=== PATIENT | female | born 1955 | race Two or more races ===

== ENCOUNTER 2020-03-12 03:46 | Inpatient (IN) | payer MEDICARE, BC ==
[~2020-03-12] VITALS: Ht 170.2 cm; Wt 72.6 kg
[2020-03-12 05:08] LABS: BASOPHILS % 0.3 % (0.0-2.0); HEMATOCRIT. 36.6 % (36.0-48.0); HEMOGLOBIN. 12.3 g/dL (12.0-16.0); LYMPHOCYTES % 25.5 % (20.0-50.0); MEAN CORPUSCULAR VOLUME 86.5 fL (81.0-99.0); MEAN PLATELET VOLUME 8.2 fl (7.4-10.4); MONOCYTES % 10.4 % (2.0-8.0); NEUTROPHILS % 63.8 % (40.0-76.0); PLATELET 176 x1000/uL (130-400); RED BLOOD CELL COUNT 4.23 mill/uL (4.2-5.4)
[2020-03-12 05:13] LABS: CHLORIDE 103 mEq/L (98-107)
[2020-03-12] MEDS ORDERED: SODIUM CHLORIDE 0.9% 500 ML IV ONE (06:15)
[2020-03-12] MEDS ORDERED: DEXAMETHASONE 10 MG/ML VIAL IV ONE (06:15)
[2020-03-12] MEDS ORDERED: CEFTRIAXONE 1 G PREMIX 50 ML IV ONE (06:15)
[2020-03-12] MEDS ORDERED: AZITHROMYCIN 500 MG in DEXT 5% WATER 250 ML IV SCH (06:15)
[2020-03-12] MEDS ORDERED: ONDANSETRON HCL 4MG/2ML INJ IV PRN (06:45)
[2020-03-12] MEDS ORDERED: ACETAMINOPHEN 325MG TABLET PO PRN ×2 (06:45)
[2020-03-12] MEDS ORDERED: CLONIDINE 0.1MG TABLET PO PRN (06:45)
[2020-03-12] MEDS ORDERED: TRAMADOL 50MG TABLET PO PRN (06:45)
[2020-03-12] MEDS ORDERED: NITROGLYCERIN 0.4MG TABLET SL SL PRN (06:45)
[2020-03-12] MEDS ORDERED: KETOROLAC 15MG/ML VIAL IV PRN (06:45)
[2020-03-12] MEDS ORDERED: MAGNESIUM/ALUMINUM HYDROXIDE/SIMETHICONE 30ML UDC PO PRN (06:45)
[2020-03-12] MEDS ORDERED: ALBUTEROL 6.7GM HFA INHALER ORI PRN (06:45)
[2020-03-12] MEDS ORDERED: GUAIFENESIN 200MG/10ML SUGAR FREE UDC PO PRN (06:45)
[2020-03-12] MEDS ORDERED: DEXTROSE 50% WATER 50ML SYRINGE IV PRN (06:45)
[2020-03-12] MEDS ORDERED: DOCUSATE SODIUM 100MG CAPSULE PO PRN (06:45)
[2020-03-12] MEDS: INSULIN LISPRO 100 UNITS/ML SUBCUT SCH ×4 (08:20→21:00)
[2020-03-12] MEDS: BLOOD SUGAR DIAGNOSTIC STRIP TEST SCH ×4 (09:00→21:00)
[2020-03-12] MEDS: ALBUTEROL 6.7GM HFA INHALER ORI SCH ×3 (09:00→21:12)
[2020-03-12] MEDS ORDERED: BENZONATATE 100MG CAPSULE PO PRN (10:00)
[2020-03-12 11:13] VITALS: BP 115/59
[2020-03-12] MEDS ORDERED: HYDR25TA MT (11:48)
[2020-03-12] MEDS ORDERED: BENI5 MT (11:48)
[2020-03-12] MEDS ORDERED: AZIT250T12 MT (11:48)
[2020-03-12] MEDS ORDERED: METF-414 MT (11:48)
[2020-03-12] MEDS ORDERED: ALBU6.7H9 INH (11:48)
[2020-03-12] MEDS ORDERED: P20 MT (11:48)
[2020-03-12 12:00] VITALS: BP 101/57
[2020-03-12] MEDS ORDERED: REMDESIVIR 200 MG in SODIUM CHLORIDE 0.9% 250 ML IV NR (12:00)
[2020-03-12] MEDS: ASCORBIC ACID 500 MG TABLET PO SCH ×2 (12:30→21:12)
[2020-03-12] MEDS: GUAIFENESIN/DM 600MG/30MG ER TAB 12HR PO SCH ×2 (12:30→21:12)
[2020-03-12] MEDS: CHOLECALCIFEROL (D3) 1000 UNIT TABLET PO SCH (12:31)
[2020-03-12] MEDS: ENOXAPARIN 40MG/0.4ML SYR SUBCUT SCH (12:31)
[2020-03-12] MEDS: FAMOTIDINE 20MG TABLET PO SCH ×2 (12:33→21:12)
[2020-03-12] MEDS ORDERED: LOPERAMIDE HCL 2MG CAPSULE PO PRN (14:00)
[2020-03-12] MEDS ORDERED: ENOXAPARIN 40MG/0.4ML SYR SUBCUT SCH (14:30)
[2020-03-12] MEDS: DIPHENOXYLATE/ATROPINE 2.5/0.025MG TABLET PO SCH ×2 (15:00→17:35)
[2020-03-12] MEDS: ZINC SULFATE 220 MG ( 50 ) CAPSULE PO SCH (15:15)
[2020-03-12] MEDS: LOPERAMIDE HCL 2MG CAPSULE PO PRN (15:15)
[2020-03-12 15:58] LABS: CREATINE KINASE 84 IU/L (26-192)
[2020-03-12 16:00] VITALS: BP 101/60
[2020-03-12 16:00] LABS: CREATINE KINASE MB FRACTION < 1.0 ng/mL (0.5-3.6)
[2020-03-12] MEDS ORDERED: ZOLPIDEM TARTRATE 5MG TABLET PO PRN (18:00)
[2020-03-12 20:00] VITALS: BP 98/51
[2020-03-12 23:44] LABS: CREATINE KINASE 74 IU/L (26-192)
[2020-03-12 23:45] LABS: CREATINE KINASE MB FRACTION < 1.0 ng/mL (0.5-3.6)
[2020-03-13] VITALS: BP 95/41
[2020-03-13] MEDS: ALBUTEROL 6.7GM HFA INHALER ORI SCH ×4 (03:00→21:14)
[2020-03-13 04:00] VITALS: BP 98/53
[2020-03-13] MEDS: BLOOD SUGAR DIAGNOSTIC STRIP TEST SCH ×4 (07:06→21:06)
[2020-03-13] MEDS: INSULIN LISPRO 100 UNITS/ML SUBCUT SCH ×4 (07:06→21:08)
[2020-03-13 07:27] LABS: BASOPHILS % 0.1 % (0.0-2.0); HEMATOCRIT. 32.3 % (36.0-48.0); HEMOGLOBIN. 10.7 g/dL (12.0-16.0); LYMPHOCYTES % 9.9 % (20.0-50.0); MEAN CORPUSCULAR HEMOGLOBIN 28.9 pg (28.0-32.0); MEAN CORPUSCULAR VOLUME 87.5 fL (81.0-99.0); MEAN PLATELET VOLUME 8.7 fl (7.4-10.4); MONOCYTES % 3.6 % (2.0-8.0); NEUTROPHILS % 86.4 % (40.0-76.0); PLATELET 189 x1000/uL (130-400); RED BLOOD CELL COUNT 3.69 mill/uL (4.2-5.4); RED CELL DISTRIBUTION WIDTH 12.9 % (11.6-14.6)
[2020-03-13 07:38] LABS: CHLORIDE 106 mEq/L (98-107)
[2020-03-13 07:44] LABS: PHOSPHORUS 3.7 mg/dL (2.5-4.9)
[2020-03-13 08:00] VITALS: BP 99/50
[2020-03-13] MEDS ORDERED: AZITHROMYCIN 500 MG in DEXT 5% WATER 250 ML IV SCH (08:00)
[2020-03-13] MEDS: ENOXAPARIN 40MG/0.4ML SYR SUBCUT SCH (08:40)
[2020-03-13] MEDS: GUAIFENESIN/DM 600MG/30MG ER TAB 12HR PO SCH ×2 (08:41→21:06)
[2020-03-13] MEDS: ZINC SULFATE 220 MG ( 50 ) CAPSULE PO SCH (08:41)
[2020-03-13] MEDS: DEXAMETHASONE 10 MG/ML VIAL IV SCH (08:41)
[2020-03-13] MEDS: FAMOTIDINE 20MG TABLET PO SCH ×2 (08:41→21:06)
[2020-03-13] MEDS: ASCORBIC ACID 500 MG TABLET PO SCH ×2 (08:41→21:06)
[2020-03-13] MEDS: LOPERAMIDE HCL 2MG CAPSULE PO PRN (08:41)
[2020-03-13] MEDS: CEFTRIAXONE 1,000 MG in DEXTROSE 5% WATER 50 ML IV SCH (08:42)
[2020-03-13] MEDS: AZITHROMYCIN 500 MG in DEXT 5% WATER 250 ML IV SCH (08:42)
[2020-03-13] MEDS: CHOLECALCIFEROL (D3) 1000 UNIT TABLET PO SCH (08:56)
[2020-03-13] MEDS ORDERED: CEFTRIAXONE 1 G PREMIX 50 ML IV SCH (09:00)
[2020-03-13] MEDS: REMDESIVIR 100 MG in SODIUM CHLORIDE 0.9% 250 ML IV SCH (12:54)
[2020-03-13 16:00] VITALS: BP 99/40
[2020-03-13] MEDS ORDERED: ERGOCALCIFEROL 50000UNITS CAPSULE PO SCH (18:15)
[2020-03-13 20:00] VITALS: BP 106/54
[2020-03-14] VITALS: BP 108/55
[2020-03-14 04:00] VITALS: BP 112/52
[2020-03-14] MEDS: ALBUTEROL 6.7GM HFA INHALER ORI SCH ×4 (05:45→20:45)
[2020-03-14] MEDS: BLOOD SUGAR DIAGNOSTIC STRIP TEST SCH ×4 (06:20→20:44)
[2020-03-14] MEDS: INSULIN LISPRO 100 UNITS/ML SUBCUT SCH ×4 (06:20→20:42)
[2020-03-14 07:37] LABS: CHLORIDE 107 mEq/L (98-107)
[2020-03-14 08:00] VITALS: BP 92/49
[2020-03-14] MEDS: DEXAMETHASONE 10 MG/ML VIAL IV SCH (08:25)
[2020-03-14] MEDS: AZITHROMYCIN 500 MG in DEXT 5% WATER 250 ML IV SCH (08:25)
[2020-03-14] MEDS: ENOXAPARIN 40MG/0.4ML SYR SUBCUT SCH (08:51)
[2020-03-14] MEDS: ZINC SULFATE 220 MG ( 50 ) CAPSULE PO SCH (08:51)
[2020-03-14] MEDS: FAMOTIDINE 20MG TABLET PO SCH ×2 (08:51→20:41)
[2020-03-14] MEDS: CEFTRIAXONE 1,000 MG in DEXTROSE 5% WATER 50 ML IV SCH (08:51)
[2020-03-14] MEDS: GUAIFENESIN/DM 600MG/30MG ER TAB 12HR PO SCH ×2 (09:00→20:41)
[2020-03-14] MEDS: ASCORBIC ACID 500 MG TABLET PO SCH ×2 (09:00→20:41)
[2020-03-14 11:53] VITALS: BP 119/57
[2020-03-14] MEDS ORDERED: PNEUMOCOCCAL 23-VAL P-SAC VAC 0.5 ML IM ONE (12:00)
[2020-03-14] MEDS: REMDESIVIR 100 MG in SODIUM CHLORIDE 0.9% 250 ML IV SCH (13:31)
[2020-03-14 15:00] VITALS: BP 106/50
[2020-03-14 20:00] VITALS: BP 113/59
[2020-03-15] VITALS: BP 143/50
[2020-03-15 04:00] VITALS: BP 143/57
[2020-03-15] MEDS: ALBUTEROL 6.7GM HFA INHALER ORI SCH ×4 (04:52→21:31)
[2020-03-15] MEDS: INSULIN LISPRO 100 UNITS/ML SUBCUT SCH ×4 (06:08→21:41)
[2020-03-15] MEDS: BLOOD SUGAR DIAGNOSTIC STRIP TEST SCH ×4 (06:08→21:30)
[2020-03-15 06:38] LABS: CHLORIDE 108 mEq/L (98-107)
[2020-03-15 08:00] VITALS: BP 115/52
[2020-03-15] MEDS: ASCORBIC ACID 500 MG TABLET PO SCH ×2 (09:00→21:30)
[2020-03-15] MEDS: DEXAMETHASONE 10 MG/ML VIAL IV SCH (09:04)
[2020-03-15] MEDS: ZINC SULFATE 220 MG ( 50 ) CAPSULE PO SCH (09:04)
[2020-03-15] MEDS: FAMOTIDINE 20MG TABLET PO SCH ×2 (09:04→21:30)
[2020-03-15] MEDS: GUAIFENESIN/DM 600MG/30MG ER TAB 12HR PO SCH ×2 (09:04→21:30)
[2020-03-15] MEDS: AZITHROMYCIN 500 MG in DEXT 5% WATER 250 ML IV SCH (09:04)
[2020-03-15] MEDS: ENOXAPARIN 40MG/0.4ML SYR SUBCUT SCH ×2 (09:06→09:07)
[2020-03-15 12:00] VITALS: BP 119/54
[2020-03-15] MEDS: REMDESIVIR 100 MG in SODIUM CHLORIDE 0.9% 250 ML IV SCH (14:36)
[2020-03-15 16:00] VITALS: BP 107/46
[2020-03-15 20:00] VITALS: BP 142/66
[2020-03-16] VITALS: BP 144/72
[2020-03-16] MEDS: ALBUTEROL 6.7GM HFA INHALER ORI SCH ×4 (03:56→20:22)
[2020-03-16 04:00] VITALS: BP 146/60
[2020-03-16] MEDS: BLOOD SUGAR DIAGNOSTIC STRIP TEST SCH ×4 (07:02→20:22)
[2020-03-16 07:44] LABS: CHLORIDE 109 mEq/L (98-107)
[2020-03-16 08:00] VITALS: BP 133/62
[2020-03-16] MEDS: INSULIN LISPRO 100 UNITS/ML SUBCUT SCH ×4 (08:10→21:21)
[2020-03-16] MEDS: ASCORBIC ACID 500 MG TABLET PO SCH ×2 (09:49→20:22)
[2020-03-16] MEDS: FAMOTIDINE 20MG TABLET PO SCH ×2 (09:49→20:22)
[2020-03-16] MEDS: GUAIFENESIN/DM 600MG/30MG ER TAB 12HR PO SCH ×2 (09:49→20:22)
[2020-03-16] MEDS: AZITHROMYCIN 500 MG in DEXT 5% WATER 250 ML IV SCH (09:49)
[2020-03-16] MEDS: ZINC SULFATE 220 MG ( 50 ) CAPSULE PO SCH (09:49)
[2020-03-16] MEDS: DEXAMETHASONE 10 MG/ML VIAL IV SCH (09:50)
[2020-03-16] MEDS: ENOXAPARIN 40MG/0.4ML SYR SUBCUT SCH (09:50)
[2020-03-16 12:00] VITALS: BP 126/74
[2020-03-16 12:40] LABS: QFT MITOGEN VALUE 1.39 IU/mL (.); QFT TB GOLD PLUS Negative (Negative); QFT TB1 AG VALUE 0.02 IU/mL (.)
[2020-03-16] MEDS: REMDESIVIR 100 MG in SODIUM CHLORIDE 0.9% 250 ML IV SCH (14:20)
[2020-03-16 16:00] VITALS: BP 117/59
[2020-03-16] MEDS ORDERED: FUROSEMIDE 40MG/4ML VIAL IVP NR (16:15)
[2020-03-16 20:00] VITALS: BP 93/53
[2020-03-17] VITALS (7 sets, daily range): BP systolic 86–122; BP diastolic 51–63
[2020-03-17] MEDS: ALBUTEROL 6.7GM HFA INHALER ORI SCH ×4 (04:02→21:50)
[2020-03-17 07:09] LABS: CHLORIDE 106 mEq/L (98-107)
[2020-03-17] MEDS: BLOOD SUGAR DIAGNOSTIC STRIP TEST SCH ×4 (07:33→21:00)
[2020-03-17] MEDS: INSULIN LISPRO 100 UNITS/ML SUBCUT SCH ×4 (07:53→22:01)
[2020-03-17] MEDS: ENOXAPARIN 40MG/0.4ML SYR SUBCUT SCH (08:17)
[2020-03-17] MEDS: ASCORBIC ACID 500 MG TABLET PO SCH ×2 (08:18→21:50)
[2020-03-17] MEDS: ZINC SULFATE 220 MG ( 50 ) CAPSULE PO SCH (08:18)
[2020-03-17] MEDS: DEXAMETHASONE 10 MG/ML VIAL IV SCH (08:18)
[2020-03-17] MEDS: GUAIFENESIN/DM 600MG/30MG ER TAB 12HR PO SCH ×2 (09:00→21:50)
[2020-03-17] MEDS ORDERED: POTASSIUM CHLORIDE 20MEQ TABLET SR PO NR (12:00)
[2020-03-17] MEDS ORDERED: FUROSEMIDE 20MG/2ML VIAL IVP NR (12:00)
[2020-03-17] MEDS: FAMOTIDINE 20MG TABLET PO SCH ×2 (12:45→21:50)
[2020-03-18] VITALS: BP 134/69
[2020-03-18 04:00] VITALS: BP 119/65
[2020-03-18] MEDS: ALBUTEROL 6.7GM HFA INHALER ORI SCH ×4 (04:17→21:00)
[2020-03-18] MEDS: BLOOD SUGAR DIAGNOSTIC STRIP TEST SCH ×4 (06:35→21:41)
[2020-03-18 06:53] LABS: CHLORIDE 107 mEq/L (98-107)
[2020-03-18] MEDS: INSULIN LISPRO 100 UNITS/ML SUBCUT SCH ×4 (07:26→21:51)
[2020-03-18 07:57] VITALS: BP 103/53
[2020-03-18] MEDS: ENOXAPARIN 40MG/0.4ML SYR SUBCUT SCH (09:45)
[2020-03-18] MEDS: DEXAMETHASONE 10 MG/ML VIAL IV SCH (09:45)
[2020-03-18] MEDS: FAMOTIDINE 20MG TABLET PO SCH ×2 (09:47→21:51)
[2020-03-18] MEDS: ASCORBIC ACID 500 MG TABLET PO SCH ×2 (09:48→21:51)
[2020-03-18] MEDS: GUAIFENESIN/DM 600MG/30MG ER TAB 12HR PO SCH ×2 (09:48→21:51)
[2020-03-18] MEDS: ZINC SULFATE 220 MG ( 50 ) CAPSULE PO SCH (09:50)
[2020-03-18 12:00] VITALS: BP 110/45
[2020-03-18 16:00] VITALS: BP 123/47
[2020-03-18 20:00] VITALS: BP 126/61
[2020-03-19] VITALS: BP 127/64
[2020-03-19 04:00] VITALS: BP 126/65
[2020-03-19] MEDS: BLOOD SUGAR DIAGNOSTIC STRIP TEST SCH ×2 (07:16→12:36)
[2020-03-19] MEDS: INSULIN LISPRO 100 UNITS/ML SUBCUT SCH ×2 (07:16→12:37)
[2020-03-19 07:54] VITALS: BP 117/60
[2020-03-19] MEDS: ALBUTEROL 6.7GM HFA INHALER ORI SCH (08:07)
[2020-03-19] MEDS: ENOXAPARIN 40MG/0.4ML SYR SUBCUT SCH (08:07)
[2020-03-19] MEDS: ZINC SULFATE 220 MG ( 50 ) CAPSULE PO SCH (08:07)
[2020-03-19] MEDS: FAMOTIDINE 20MG TABLET PO SCH (08:07)
[2020-03-19] MEDS: ASCORBIC ACID 500 MG TABLET PO SCH (08:07)
[2020-03-19] MEDS: DEXAMETHASONE 10 MG/ML VIAL IV SCH (08:07)
[2020-03-19] MEDS: GUAIFENESIN/DM 600MG/30MG ER TAB 12HR PO SCH (08:07)
[2020-03-19 12:00] VITALS: BP 112/48
[2020-03-19 14:21] VITALS: BP 112/48
[2020-03-19 16:00] VITALS: BP 98/63
== END 2020-03-19 16:20 | disposition home or self-care (01) | DRG 871 ==
LOC: ER 03:46 → 7WST 06:07 → ENRESERV 08:45
PROVIDERS: ADMIT Internal Medicine; ATTEND Internal Medicine
PROC: XW033E5 Introduction of Remdesivir Anti-infective into Peripheral Vein, Percutaneous Approach, New Technology Group 5 (ICD-10-PCS; principal; 2020-03-13)
DX: A41.89 Other specified sepsis (principal); U07.1 COVID-19; J96.01 Acute respiratory failure with hypoxia; J12.82 Pneumonia due to coronavirus disease 2019; E44.1 Mild protein-calorie malnutrition; E11.9 Type 2 diabetes mellitus without complications; I10 Essential (primary) hypertension; D64.9 Anemia, unspecified; D72.819 Decreased white blood cell count, unspecified; B97.89 Other viral agents as the cause of diseases classified elsewhere; K52.9 Noninfective gastroenteritis and colitis, unspecified; Z90.710 Acquired absence of both cervix and uterus; Z83.3 Family history of diabetes mellitus; Z68.25 Body mass index [BMI] 25.0-25.9, adult; Z79.2 Long term (current) use of antibiotics; Z79.84 Long term (current) use of oral hypoglycemic drugs; Z90.89 Acquired absence of other organs; Z79.899 Other long term (current) drug therapy
CPT/HCPCS: 36415; 71045; 80053; 80061; 82550; 82553; 82728; 82962; 83036; 83605; 83735; 83880; 84100; 84145; 84484; 85025; 85379; 86140; 86480; 87426; 87635; 90732; 93005; 93970; 99285; J0456; J0696; J1100; J1650; J1815; J1940; J7040; J7050; J7060; Q9957

== ENCOUNTER 2020-03-25 04:39 | Inpatient (IN) | payer MEDICARE, BC ==
[~2020-03-25] VITALS: Ht 170.2 cm; Wt 60.3 kg
[~2020-03-25 04:39] MED LIST: ALBU6.7H9 INH; AZIT250T12 MT; BENI5 MT; HYDR25TA MT; METF-414 MT; P20 MT
[2020-03-25 05:59] LABS: HEMATOCRIT. 31.4 % (36.0-48.0); HEMOGLOBIN. 10.6 g/dL (12.0-16.0); MEAN CORPUSCULAR HEMOGLOBIN 29.3 pg (28.0-32.0); MEAN CORPUSCULAR VOLUME 86.5 fL (81.0-99.0); MEAN PLATELET VOLUME 8.6 fl (7.4-10.4); PLATELET 208 x1000/uL (130-400); RED BLOOD CELL COUNT 3.63 mill/uL (4.2-5.4); RED CELL DISTRIBUTION WIDTH 13.2 % (11.6-14.6)
[2020-03-25] MEDS ORDERED: METHYLPREDNISOLONE SOD SUCC 125 MG/2 ML VIAL IV ONE (06:00)
[2020-03-25] MEDS ORDERED: PIPERACILLIN/TAZOBACTAM 3.375GM/50ML PREMIX IV ONE (06:00)
[2020-03-25] MEDS ORDERED: VANCOMYCIN 1 G PREMIX 200 ML IV SCH (06:00)
[2020-03-25] MEDS ORDERED: LORAZEPAM 2MG/ML CPJ IV ONE (06:00)
[2020-03-25] MEDS ORDERED: AZITHROMYCIN 500 MG in DEXT 5% WATER 250 ML IV SCH (06:00)
[2020-03-25] MEDS ORDERED: PIPERACILLIN/TAZ 3.375G PREMIX 50 ML IV NR (06:15)
[2020-03-25 06:16] LABS: CHLORIDE 100 mEq/L (98-107)
[2020-03-25] MEDS ORDERED: MAGNESIUM/ALUMINUM HYDROXIDE/SIMETHICONE 30ML UDC PO PRN (07:15)
[2020-03-25] MEDS ORDERED: GUAIFENESIN 200MG/10ML SUGAR FREE UDC PO PRN (07:15)
[2020-03-25] MEDS ORDERED: ONDANSETRON HCL 4MG/2ML INJ IV PRN (07:15)
[2020-03-25] MEDS ORDERED: CLONIDINE 0.1MG TABLET PO PRN (07:15)
[2020-03-25] MEDS ORDERED: PIPERACILLIN/TAZ 3.375G PREMIX 50 ML IV SCH (07:15)
[2020-03-25 07:16] LABS: PLATELET ESTIMATE NORMAL
[2020-03-25] MEDS ORDERED: ENOXAPARIN 40MG/0.4ML SYR SUBCUT SCH (09:00)
[2020-03-25] MEDS: PIPERACILLIN/TAZ 3.375G PREMIX 50 ML IV SCH ×2 (12:00→18:35)
[2020-03-25 14:08] LABS: BG BASE EXCESS 1.2 mmol/L (-2.0-2.0); BG CARBOXYHEMOGLOBIN 0.3 % (0.5-1.5); BG DEOXYHEMOGLOBIN 8.5 % (0.0-5.0); BG FRACTION INSPIRED OXYGEN 100; BG HCO3 ACT 26.2 mmol/L (22.0-26.0); BG METHEMOGLOBIN 0.3 % (0.0-1.5); BG OXYGEN SATURATION 91.4 % (92.0-98.5); BG OXYHEMOGLOBIN 90.9 % (94.0-97.0); BG PCO2 43.4 mmHg (35.0-45.0); BG PH 7.399 (7.350-7.450); BG PO2 61.8 mmHg (75.0-100.0); BG SAMPLE SITE RIGHT RADIAL; BG TOTAL HEMOGLOBIN 11.1 g/dL (12.0-18.0); BG TOTAL RESPIRATORY RATE 41 b/min; BG VENT MODE MASK - BIPAP
[2020-03-25] MEDS ORDERED: GUAIFENESIN-DM 200MG-20MG/10ML UDC PO PRN (14:15)
[2020-03-25] MEDS ORDERED: ALBUTEROL 6.7GM HFA INHALER ORI PRN (14:15)
[2020-03-25] MEDS ORDERED: METHYLPREDNISOLONE SOD SUCC 40 MG/ML VIAL IV SCH (14:30)
[2020-03-25] MEDS: METHYLPREDNISOLONE SOD SUCC 125 MG/2 ML VIAL IV SCH ×2 (14:51→22:50)
[2020-03-25] MEDS: FUROSEMIDE 40MG/4ML VIAL IVP SCH ×2 (15:27→18:05)
[2020-03-25] MEDS: LORAZEPAM 2MG/ML CPJ IV PRN ×2 (18:05→23:15)
[2020-03-25] MEDS: ENOXAPARIN 80MG/0.8ML SYR SUBCUT SCH (18:36)
[2020-03-26] VITALS (7 sets, daily range): BP systolic 110–130; BP diastolic 56–69
[2020-03-26] MEDS: ACETAMINOPHEN 325MG TABLET PO PRN ×3 (01:13→22:30)
[2020-03-26] MEDS: PIPERACILLIN/TAZOBACTAM 3.375 G in DEXT 5% WATER 100 ML IV SCH ×4 (02:12→21:13)
[2020-03-26] MEDS: ENOXAPARIN 80MG/0.8ML SYR SUBCUT SCH ×2 (06:04→17:27)
[2020-03-26] MEDS: METHYLPREDNISOLONE SOD SUCC 125 MG/2 ML VIAL IV SCH ×3 (06:04→21:13)
[2020-03-26 06:31] LABS: CHLORIDE 100 mEq/L (98-107)
[2020-03-26 06:38] LABS: LDL CHOLESTEROL 102 mg/dL (5-100)
[2020-03-26 06:39] LABS: HDL CHOLESTEROL 31 mg/dL (40-59); T4 FREE 1.64 ng/dL (0.76-1.46); TOTAL IRON BINDING CAPACITY 159 ug/dL (250-450)
[2020-03-26 06:51] LABS: HEMATOCRIT. 30.8 % (36.0-48.0); HEMOGLOBIN. 10.3 g/dL (12.0-16.0); MEAN CORPUSCULAR HEMOGLOBIN 29.4 pg (28.0-32.0); MEAN CORPUSCULAR VOLUME 87.6 fL (81.0-99.0); MEAN PLATELET VOLUME 8.7 fl (7.4-10.4); PLATELET 191 x1000/uL (130-400); RED BLOOD CELL COUNT 3.51 mill/uL (4.2-5.4); RED CELL DISTRIBUTION WIDTH 13.4 % (11.6-14.6)
[2020-03-26 07:37] LABS: VITAMIN B12 SERUM 541 pg/mL (211-911)
[2020-03-26] MEDS: LORAZEPAM 2MG/ML CPJ IV PRN ×2 (09:34→22:30)
[2020-03-26 11:06] LABS: PLATELET ESTIMATE NORMAL
[2020-03-26] MEDS ORDERED: VANCOMYCIN 1250MG in DEXTROSE 5% WATER 250ML IV SCH (16:00)
[2020-03-26] MEDS: ERGOCALCIFEROL 50000UNITS CAPSULE PO SCH (17:25)
[2020-03-27] VITALS: BP 97/70
[2020-03-27] MEDS: PIPERACILLIN/TAZOBACTAM 3.375 G in DEXT 5% WATER 100 ML IV SCH ×4 (02:06→18:56)
[2020-03-27 04:00] VITALS: BP 124/61
[2020-03-27] MEDS: LORAZEPAM 2MG/ML CPJ IV PRN ×2 (04:04→18:56)
[2020-03-27] MEDS: VANCOMYCIN 1 G PREMIX 200 ML IV SCH ×2 (05:57→17:55)
[2020-03-27] MEDS: METHYLPREDNISOLONE SOD SUCC 125 MG/2 ML VIAL IV SCH ×3 (05:57→21:21)
[2020-03-27] MEDS: ENOXAPARIN 80MG/0.8ML SYR SUBCUT SCH ×2 (05:58→17:56)
[2020-03-27 08:00] VITALS: BP 120/56
[2020-03-27] MEDS: ACETAMINOPHEN 325MG TABLET PO PRN (08:42)
[2020-03-27] MEDS: FUROSEMIDE 40MG/4ML VIAL IVP SCH (08:42)
[2020-03-27] MEDS ORDERED: DEXTROSE 50% WATER 50ML SYRINGE IV PRN (10:45)
[2020-03-27 10:49] LABS: CHLORIDE 98 mEq/L (98-107)
[2020-03-27 11:06] LABS: CREATINE KINASE 28 IU/L (26-192)
[2020-03-27] MEDS: BLOOD SUGAR DIAGNOSTIC STRIP TEST SCH ×3 (11:32→21:20)
[2020-03-27 12:00] VITALS: BP 112/49
[2020-03-27] MEDS: GUAIFENESIN 600MG ER TABLET PO SCH ×2 (12:53→21:21)
[2020-03-27] MEDS: INSULIN LISPRO 100 UNITS/ML SUBCUT SCH ×3 (12:55→21:21)
[2020-03-27 16:00] VITALS: BP 127/63
[2020-03-27 20:00] VITALS: BP 140/72
[2020-03-28] VITALS: BP 147/68
[2020-03-28] MEDS: PIPERACILLIN/TAZOBACTAM 3.375 G in DEXT 5% WATER 100 ML IV SCH ×4 (00:24→18:13)
[2020-03-28] MEDS: IPRATROPIUM/ALBUTEROL 0.5-3(2.5)MG/3ML NEB NEB PRN (02:39)
[2020-03-28 04:00] VITALS: BP 141/70
[2020-03-28 04:29] LABS: HEMATOCRIT. 30.3 % (36.0-48.0); HEMOGLOBIN. 10.2 g/dL (12.0-16.0); MEAN CORPUSCULAR HEMOGLOBIN 29.1 pg (28.0-32.0); MEAN CORPUSCULAR VOLUME 86.2 fL (81.0-99.0); MEAN PLATELET VOLUME 8.2 fl (7.4-10.4); PLATELET 182 x1000/uL (130-400); RED BLOOD CELL COUNT 3.52 mill/uL (4.2-5.4); RED CELL DISTRIBUTION WIDTH 13.1 % (11.6-14.6)
[2020-03-28 04:48] LABS: CHLORIDE 97 mEq/L (98-107)
[2020-03-28 04:57] LABS: VANCOMYCIN TROUGH 12.8 ug/mL (5.0-10.0)
[2020-03-28] MEDS: METHYLPREDNISOLONE SOD SUCC 125 MG/2 ML VIAL IV SCH ×3 (05:21→21:14)
[2020-03-28] MEDS: VANCOMYCIN 1 G PREMIX 200 ML IV SCH (05:22)
[2020-03-28] MEDS: ENOXAPARIN 80MG/0.8ML SYR SUBCUT SCH ×2 (05:23→18:14)
[2020-03-28] MEDS: BLOOD SUGAR DIAGNOSTIC STRIP TEST SCH ×4 (06:33→21:00)
[2020-03-28] MEDS: INSULIN LISPRO 100 UNITS/ML SUBCUT SCH ×4 (07:38→21:15)
[2020-03-28 08:00] VITALS: BP 100/50
[2020-03-28] MEDS: GUAIFENESIN 600MG ER TABLET PO SCH ×2 (08:41→21:15)
[2020-03-28] MEDS: FUROSEMIDE 40MG/4ML VIAL IVP SCH (08:41)
[2020-03-28 12:00] VITALS: BP 117/60
[2020-03-28] MEDS: POTASSIUM CHLORIDE 20MEQ TABLET SR PO SCH (12:40)
[2020-03-28] MEDS: IVERMECTIN 3 MG TABLET PO SCH (15:23)
[2020-03-28] MEDS: MORPHINE SULFATE 2 MG/ML CPJ (NOT FOR IM USE) IV PRN (15:24)
[2020-03-28 15:29] LABS: PLATELET ESTIMATE NORMAL
[2020-03-28 16:00] VITALS: BP 120/65
[2020-03-28 20:00] VITALS: BP 112/49
[2020-03-28] MEDS: VANCOMYCIN 1250MG in DEXTROSE 5% WATER 250ML IV SCH (21:14)
[2020-03-29] VITALS: BP 110/62
[2020-03-29] MEDS: PIPERACILLIN/TAZOBACTAM 3.375 G in DEXT 5% WATER 100 ML IV SCH ×4 (01:00→18:56)
[2020-03-29 04:00] VITALS: BP 144/73
[2020-03-29] MEDS: ENOXAPARIN 80MG/0.8ML SYR SUBCUT SCH ×2 (05:43→18:56)
[2020-03-29] MEDS: METHYLPREDNISOLONE SOD SUCC 125 MG/2 ML VIAL IV SCH ×3 (05:44→21:18)
[2020-03-29] MEDS: BLOOD SUGAR DIAGNOSTIC STRIP TEST SCH ×4 (06:36→20:38)
[2020-03-29] MEDS: LORAZEPAM 2MG/ML CPJ IV PRN (06:39)
[2020-03-29 06:40] LABS: CHLORIDE 95 mEq/L (98-107)
[2020-03-29] MEDS: MORPHINE SULFATE 2 MG/ML CPJ (NOT FOR IM USE) IV PRN ×2 (06:52→21:18)
[2020-03-29] MEDS: INSULIN LISPRO 100 UNITS/ML SUBCUT SCH ×4 (07:30→22:51)
[2020-03-29 08:00] VITALS: BP 119/61
[2020-03-29] MEDS: FUROSEMIDE 40MG/4ML VIAL IVP SCH (08:39)
[2020-03-29] MEDS: GUAIFENESIN 600MG ER TABLET PO SCH ×2 (08:39→21:19)
[2020-03-29] MEDS: VANCOMYCIN 1250MG in DEXTROSE 5% WATER 250ML IV SCH ×2 (08:40→22:50)
[2020-03-29] MEDS: POTASSIUM CHLORIDE 20MEQ TABLET SR PO SCH (08:42)
[2020-03-29] MEDS: IVERMECTIN 3 MG TABLET PO SCH (09:30)
[2020-03-29 12:00] VITALS: BP 122/65
[2020-03-29] MEDS: BENZONATATE 100MG CAPSULE PO SCH ×2 (14:03→21:19)
[2020-03-29 16:00] VITALS: BP 121/75
[2020-03-29 20:00] VITALS: BP 115/59
[2020-03-30] VITALS: BP 119/60
[2020-03-30] MEDS: PIPERACILLIN/TAZOBACTAM 3.375 G in DEXT 5% WATER 100 ML IV SCH ×4 (00:28→21:06)
[2020-03-30] MEDS: LORAZEPAM 2MG/ML CPJ IV PRN (01:52)
[2020-03-30 04:00] VITALS: BP 120/66
[2020-03-30] MEDS: BENZONATATE 100MG CAPSULE PO SCH ×3 (05:13→21:06)
[2020-03-30] MEDS: METHYLPREDNISOLONE SOD SUCC 125 MG/2 ML VIAL IV SCH ×3 (05:13→21:06)
[2020-03-30] MEDS: ENOXAPARIN 80MG/0.8ML SYR SUBCUT SCH (05:14)
[2020-03-30 06:45] LABS: HEMATOCRIT. 33.6 % (36.0-48.0); HEMOGLOBIN. 11.1 g/dL (12.0-16.0); MEAN CORPUSCULAR HEMOGLOBIN 28.8 pg (28.0-32.0); MEAN CORPUSCULAR VOLUME 87.4 fL (81.0-99.0); MEAN PLATELET VOLUME 9.1 fl (7.4-10.4); PLATELET 165 x1000/uL (130-400); RED BLOOD CELL COUNT 3.84 mill/uL (4.2-5.4); RED CELL DISTRIBUTION WIDTH 13.2 % (11.6-14.6)
[2020-03-30 07:15] LABS: CHLORIDE 91 mEq/L (98-107)
[2020-03-30] MEDS: BLOOD SUGAR DIAGNOSTIC STRIP TEST SCH ×3 (07:40→21:25)
[2020-03-30 08:00] VITALS: BP 135/72
[2020-03-30] MEDS: FUROSEMIDE 40MG/4ML VIAL IVP SCH (09:03)
[2020-03-30] MEDS: GUAIFENESIN 600MG ER TABLET PO SCH ×2 (09:03→21:06)
[2020-03-30] MEDS: POTASSIUM CHLORIDE 20MEQ TABLET SR PO SCH (09:03)
[2020-03-30] MEDS: INSULIN LISPRO 100 UNITS/ML SUBCUT SCH ×4 (09:03→21:33)
[2020-03-30] MEDS: MORPHINE SULFATE 2 MG/ML CPJ (NOT FOR IM USE) IV PRN ×2 (09:44→19:03)
[2020-03-30] MEDS: IVERMECTIN 3 MG TABLET PO SCH (10:47)
[2020-03-30 12:00] VITALS: BP 102/59
[2020-03-30] MEDS: VANCOMYCIN 1250MG in DEXTROSE 5% WATER 250ML IV SCH ×2 (12:00→21:48)
[2020-03-30 12:23] LABS: PLATELET ESTIMATE NORMAL
[2020-03-30 18:00] VITALS: BP 119/59
[2020-03-30 20:00] VITALS: BP 117/61
[2020-03-31] VITALS: BP 128/64
[2020-03-31] MEDS: PIPERACILLIN/TAZOBACTAM 3.375 G in DEXT 5% WATER 100 ML IV SCH (02:30)
[2020-03-31 04:00] VITALS: BP 131/65
[2020-03-31] MEDS: METHYLPREDNISOLONE SOD SUCC 125 MG/2 ML VIAL IV SCH ×3 (05:47→21:52)
[2020-03-31] MEDS: BENZONATATE 100MG CAPSULE PO SCH ×4 (05:47→21:52)
[2020-03-31] MEDS: ENOXAPARIN 80MG/0.8ML SYR SUBCUT SCH (05:48)
[2020-03-31] MEDS: BLOOD SUGAR DIAGNOSTIC STRIP TEST SCH ×4 (06:02→21:51)
[2020-03-31 08:00] VITALS: BP 131/69
[2020-03-31] MEDS: MORPHINE SULFATE 2 MG/ML CPJ (NOT FOR IM USE) IV PRN ×2 (08:05→18:56)
[2020-03-31] MEDS: INSULIN LISPRO 100 UNITS/ML SUBCUT SCH ×3 (08:30→21:00)
[2020-03-31] MEDS: FUROSEMIDE 40MG/4ML VIAL IVP SCH (11:37)
[2020-03-31] MEDS: POTASSIUM CHLORIDE 20MEQ TABLET SR PO SCH (11:38)
[2020-03-31] MEDS: GUAIFENESIN 600MG ER TABLET PO SCH ×2 (11:38→21:52)
[2020-03-31] MEDS: IVERMECTIN 3 MG TABLET PO SCH (11:38)
[2020-03-31 12:00] VITALS: BP 106/59
[2020-03-31] MEDS: VANCOMYCIN 1250MG in DEXTROSE 5% WATER 250ML IV SCH ×2 (12:12→21:51)
[2020-03-31 20:00] VITALS: BP 106/61
[2020-03-31] MEDS: LORAZEPAM 2MG/ML CPJ IV PRN (23:53)
[2020-04-01] VITALS: BP 110/57
[2020-04-01 04:00] VITALS: BP 127/54
[2020-04-01] MEDS: MORPHINE SULFATE 2 MG/ML CPJ (NOT FOR IM USE) IV PRN (04:18)
[2020-04-01] MEDS: METHYLPREDNISOLONE SOD SUCC 125 MG/2 ML VIAL IV SCH ×3 (06:11→22:14)
[2020-04-01] MEDS: ENOXAPARIN 80MG/0.8ML SYR SUBCUT SCH ×2 (06:12→17:25)
[2020-04-01] MEDS: BENZONATATE 100MG CAPSULE PO SCH ×3 (06:12→22:13)
[2020-04-01] MEDS: BLOOD SUGAR DIAGNOSTIC STRIP TEST SCH ×4 (06:57→21:00)
[2020-04-01 08:00] VITALS: BP 125/62
[2020-04-01] MEDS: FUROSEMIDE 40MG/4ML VIAL IVP SCH (08:15)
[2020-04-01] MEDS: IVERMECTIN 3 MG TABLET PO SCH (08:15)
[2020-04-01] MEDS: GUAIFENESIN 600MG ER TABLET PO SCH ×2 (08:15→22:13)
[2020-04-01] MEDS: POTASSIUM CHLORIDE 20MEQ TABLET SR PO SCH (08:16)
[2020-04-01] MEDS: INSULIN LISPRO 100 UNITS/ML SUBCUT SCH ×4 (08:30→22:42)
[2020-04-01 11:36] LABS: BG BASE EXCESS 8.6 mmol/L (-2.0-2.0); BG CARBOXYHEMOGLOBIN 0.3 % (0.5-1.5); BG DEOXYHEMOGLOBIN 9.3 % (0.0-5.0); BG FRACTION INSPIRED OXYGEN 100; BG HCO3 ACT 33.6 mmol/L (22.0-26.0); BG METHEMOGLOBIN 0.3 % (0.0-1.5); BG OXYGEN SATURATION 90.6 % (92.0-98.5); BG OXYHEMOGLOBIN 90.1 % (94.0-97.0); BG PCO2 48.2 mmHg (35.0-45.0); BG PH 7.461 (7.350-7.450); BG PO2 59.6 mmHg (75.0-100.0); BG SAMPLE SITE RIGHT BRACHIAL; BG TOTAL HEMOGLOBIN 12.3 g/dL (12.0-18.0); BG TOTAL RESPIRATORY RATE 34 b/min; BG VENT MODE MASK - BIPAP
[2020-04-01 12:00] VITALS: BP 139/86
[2020-04-01] MEDS: ALPRAZOLAM 0.25 MG TABLET PO SCH ×2 (13:50→22:14)
[2020-04-01 16:00] VITALS: BP 112/59
[2020-04-01] MEDS: LORAZEPAM 2MG/ML CPJ IV PRN (18:05)
[2020-04-01 20:00] VITALS: BP 102/56
[2020-04-02] VITALS: BP 102/48
[2020-04-02] MEDS: MORPHINE SULFATE 2 MG/ML CPJ (NOT FOR IM USE) IV PRN ×2 (02:57→17:16)
[2020-04-02 04:00] VITALS: BP 111/60
[2020-04-02] MEDS: METHYLPREDNISOLONE SOD SUCC 125 MG/2 ML VIAL IV SCH ×3 (06:27→21:10)
[2020-04-02] MEDS: BENZONATATE 100MG CAPSULE PO SCH ×3 (06:27→21:10)
[2020-04-02] MEDS: ALPRAZOLAM 0.25 MG TABLET PO SCH ×3 (06:27→21:10)
[2020-04-02] MEDS: ENOXAPARIN 80MG/0.8ML SYR SUBCUT SCH ×2 (06:27→17:16)
[2020-04-02 07:00] LABS: CHLORIDE 96 mEq/L (98-107)
[2020-04-02 07:02] LABS: HEMATOCRIT. 34.1 % (36.0-48.0); HEMOGLOBIN. 11.6 g/dL (12.0-16.0); MEAN CORPUSCULAR HEMOGLOBIN 29.5 pg (28.0-32.0); MEAN PLATELET VOLUME 9.1 fl (7.4-10.4); PLATELET 246 x1000/uL (130-400); RED BLOOD CELL COUNT 3.92 mill/uL (4.2-5.4); RED CELL DISTRIBUTION WIDTH 13.4 % (11.6-14.6)
[2020-04-02] MEDS: BLOOD SUGAR DIAGNOSTIC STRIP TEST SCH ×4 (07:18→21:09)
[2020-04-02 08:00] VITALS: BP 119/59
[2020-04-02] MEDS: ERGOCALCIFEROL 50000UNITS CAPSULE PO SCH (08:18)
[2020-04-02] MEDS: POTASSIUM CHLORIDE 20MEQ TABLET SR PO SCH (08:18)
[2020-04-02] MEDS: FUROSEMIDE 40MG/4ML VIAL IVP SCH (08:18)
[2020-04-02] MEDS: GUAIFENESIN 600MG ER TABLET PO SCH ×2 (08:18→21:10)
[2020-04-02] MEDS: INSULIN LISPRO 100 UNITS/ML SUBCUT SCH ×4 (08:21→21:00)
[2020-04-02] MEDS: LORAZEPAM 2MG/ML CPJ IV PRN (11:15)
[2020-04-02 12:00] VITALS: BP 126/56
[2020-04-02 13:57] LABS: PLATELET ESTIMATE NORMAL
[2020-04-02 16:00] VITALS: BP 133/52
[2020-04-02 20:00] VITALS: BP 109/67
[2020-04-03 04:00] VITALS: BP 99/62
[2020-04-03] MEDS: METHYLPREDNISOLONE SOD SUCC 125 MG/2 ML VIAL IV SCH ×2 (05:26→13:14)
[2020-04-03] MEDS: ENOXAPARIN 80MG/0.8ML SYR SUBCUT SCH ×2 (05:26→17:30)
[2020-04-03] MEDS: MORPHINE SULFATE 2 MG/ML CPJ (NOT FOR IM USE) IV PRN ×2 (05:26→23:06)
[2020-04-03] MEDS: BENZONATATE 100MG CAPSULE PO SCH ×3 (05:26→21:28)
[2020-04-03] MEDS: ALPRAZOLAM 0.25 MG TABLET PO SCH ×3 (06:00→21:28)
[2020-04-03] MEDS: BLOOD SUGAR DIAGNOSTIC STRIP TEST SCH ×4 (06:33→21:04)
[2020-04-03] MEDS: INSULIN LISPRO 100 UNITS/ML SUBCUT SCH ×4 (07:13→21:30)
[2020-04-03 08:00] VITALS: BP 142/67
[2020-04-03] MEDS: FUROSEMIDE 40MG/4ML VIAL IVP SCH (09:10)
[2020-04-03] MEDS: GUAIFENESIN 600MG ER TABLET PO SCH ×2 (09:11→21:28)
[2020-04-03] MEDS: POTASSIUM CHLORIDE 20MEQ TABLET SR PO SCH (09:11)
[2020-04-03 12:00] VITALS: BP 148/69
[2020-04-03] MEDS: METHYLPREDNISOLONE SOD SUCC 40 MG/ML VIAL IV SCH ×2 (14:00→21:31)
[2020-04-03 16:00] VITALS: BP 125/58
[2020-04-03 20:00] VITALS: BP 128/63
[2020-04-04] VITALS (26 sets, daily range): BP systolic 102–127; BP diastolic 50–80
[2020-04-04] MEDS: ALPRAZOLAM 0.25 MG TABLET PO SCH ×3 (06:00→21:00)
[2020-04-04] MEDS: METHYLPREDNISOLONE SOD SUCC 40 MG/ML VIAL IV SCH ×3 (06:00→21:00)
[2020-04-04] MEDS: BENZONATATE 100MG CAPSULE PO SCH ×3 (06:01→21:00)
[2020-04-04] MEDS: ENOXAPARIN 80MG/0.8ML SYR SUBCUT SCH ×2 (06:01→18:26)
[2020-04-04] MEDS: BLOOD SUGAR DIAGNOSTIC STRIP TEST SCH ×4 (06:35→21:01)
[2020-04-04 07:26] LABS: CHLORIDE 102 mEq/L (98-107)
[2020-04-04 07:42] LABS: HEMATOCRIT. 34.8 % (36.0-48.0); HEMOGLOBIN. 11.6 g/dL (12.0-16.0); MEAN CORPUSCULAR HEMOGLOBIN 29.1 pg (28.0-32.0); MEAN CORPUSCULAR VOLUME 87.5 fL (81.0-99.0); PLATELET 335 x1000/uL (130-400); RED BLOOD CELL COUNT 3.97 mill/uL (4.2-5.4); RED CELL DISTRIBUTION WIDTH 13.7 % (11.6-14.6)
[2020-04-04] MEDS: POTASSIUM CHLORIDE 20MEQ TABLET SR PO SCH (09:00)
[2020-04-04] MEDS: FUROSEMIDE 40MG/4ML VIAL IVP SCH (11:16)
[2020-04-04] MEDS: INSULIN LISPRO 100 UNITS/ML SUBCUT SCH ×4 (11:16→21:02)
[2020-04-04] MEDS: GUAIFENESIN 600MG ER TABLET PO SCH ×2 (11:16→21:00)
[2020-04-04] MEDS: MORPHINE SULFATE 2 MG/ML CPJ (NOT FOR IM USE) IV PRN (17:16)
[2020-04-04 21:20] LABS: PLATELET ESTIMATE NORMAL
[2020-04-05] VITALS (50 sets, daily range): BP systolic 89–159; BP diastolic 48–125
[2020-04-05 05:56] LABS: CHLORIDE 99 mEq/L (98-107)
[2020-04-05] MEDS: BLOOD SUGAR DIAGNOSTIC STRIP TEST SCH ×4 (06:22→21:26)
[2020-04-05] MEDS: ALPRAZOLAM 0.25 MG TABLET PO SCH ×3 (06:22→21:20)
[2020-04-05] MEDS: BENZONATATE 100MG CAPSULE PO SCH ×3 (06:22→21:19)
[2020-04-05] MEDS: ENOXAPARIN 80MG/0.8ML SYR SUBCUT SCH (06:22)
[2020-04-05] MEDS: METHYLPREDNISOLONE SOD SUCC 40 MG/ML VIAL IV SCH ×3 (06:22→21:33)
[2020-04-05] MEDS: INSULIN LISPRO 100 UNITS/ML SUBCUT SCH ×4 (06:23→21:26)
[2020-04-05 08:32] LABS: BASOPHILS % 0.5 % (0.0-2.0); HEMATOCRIT. 34.6 % (36.0-48.0); HEMOGLOBIN. 11.7 g/dL (12.0-16.0); MEAN CORPUSCULAR HEMOGLOBIN 29.5 pg (28.0-32.0); MEAN CORPUSCULAR VOLUME 86.8 fL (81.0-99.0); MEAN PLATELET VOLUME 8.7 fl (7.4-10.4); MONOCYTES % 3.5 % (2.0-8.0); PLATELET 367 x1000/uL (130-400); RED BLOOD CELL COUNT 3.98 mill/uL (4.2-5.4); RED CELL DISTRIBUTION WIDTH 13.7 % (11.6-14.6)
[2020-04-05] MEDS: FUROSEMIDE 40MG/4ML VIAL IVP SCH (09:00)
[2020-04-05] MEDS: POTASSIUM CHLORIDE 20MEQ TABLET SR PO SCH (09:00)
[2020-04-05 09:23] LABS: BG CARBOXYHEMOGLOBIN 0.2 % (0.5-1.5); BG HCO3 ACT 30.2 mmol/L (22.0-26.0); BG METHEMOGLOBIN 0.4 % (0.0-1.5); BG OXYGEN SATURATION 83.9 % (92.0-98.5); BG OXYHEMOGLOBIN 83.4 % (94.0-97.0); BG PH 7.475 (7.350-7.450); BG PO2 46.6 mmHg (75.0-100.0); BG SAMPLE SITE RIGHT BRACHIAL; BG TOTAL HEMOGLOBIN 13.2 g/dL (12.0-18.0); BG VENT MODE VAPOTHERM
[2020-04-05] MEDS: LORAZEPAM 2MG/ML CPJ IV PRN (10:30)
[2020-04-05] MEDS: GUAIFENESIN 600MG ER TABLET PO SCH ×2 (12:16→21:20)
[2020-04-05] MEDS: ENOXAPARIN 60MG/0.6ML SYR SUBCUT SCH (18:05)
[2020-04-06] VITALS (50 sets, daily range): BP systolic 89–159; BP diastolic 48–106
[2020-04-06] MEDS: LORAZEPAM 2MG/ML CPJ IV PRN ×2 (01:14→10:14)
[2020-04-06 05:22] LABS: HEMATOCRIT. 35.5 % (36.0-48.0); HEMOGLOBIN. 11.8 g/dL (12.0-16.0); MEAN PLATELET VOLUME 8.7 fl (7.4-10.4); PLATELET 378 x1000/uL (130-400); RED BLOOD CELL COUNT 4.08 mill/uL (4.2-5.4); RED CELL DISTRIBUTION WIDTH 13.7 % (11.6-14.6)
[2020-04-06 05:37] LABS: CHLORIDE 103 mEq/L (98-107)
[2020-04-06 05:48] LABS: C REACTIVE PROTEIN QUANT 2.7 mg/L (0.0-3.0)
[2020-04-06] MEDS: ALPRAZOLAM 0.25 MG TABLET PO SCH ×3 (06:21→21:05)
[2020-04-06] MEDS: BENZONATATE 100MG CAPSULE PO SCH ×3 (06:21→21:05)
[2020-04-06] MEDS: METHYLPREDNISOLONE SOD SUCC 40 MG/ML VIAL IV SCH ×3 (06:21→22:04)
[2020-04-06] MEDS: ENOXAPARIN 60MG/0.6ML SYR SUBCUT SCH ×2 (06:22→18:00)
[2020-04-06] MEDS: BLOOD SUGAR DIAGNOSTIC STRIP TEST SCH ×4 (06:22→20:54)
[2020-04-06] MEDS: INSULIN LISPRO 100 UNITS/ML SUBCUT SCH ×4 (06:23→21:06)
[2020-04-06] MEDS: FUROSEMIDE 40MG/4ML VIAL IVP SCH (10:11)
[2020-04-06] MEDS: GUAIFENESIN 600MG ER TABLET PO SCH ×2 (10:11→21:05)
[2020-04-06] MEDS: POTASSIUM CHLORIDE 20MEQ TABLET SR PO SCH (10:14)
[2020-04-06 10:38] LABS: PLATELET ESTIMATE NORMAL
[2020-04-07] VITALS (32 sets, daily range): BP systolic 101–148; BP diastolic 60–92
[2020-04-07] MEDS: ENOXAPARIN 60MG/0.6ML SYR SUBCUT SCH ×2 (06:01→17:36)
[2020-04-07] MEDS: ALPRAZOLAM 0.25 MG TABLET PO SCH ×3 (06:01→21:22)
[2020-04-07] MEDS: METHYLPREDNISOLONE SOD SUCC 40 MG/ML VIAL IV SCH ×3 (06:01→21:22)
[2020-04-07] MEDS: BENZONATATE 100MG CAPSULE PO SCH ×3 (06:02→21:22)
[2020-04-07] MEDS: BLOOD SUGAR DIAGNOSTIC STRIP TEST SCH ×4 (06:30→21:22)
[2020-04-07] MEDS: FUROSEMIDE 40MG/4ML VIAL IVP SCH (08:20)
[2020-04-07] MEDS: DOCUSATE SODIUM 100MG CAPSULE PO PRN ×2 (08:20→21:42)
[2020-04-07] MEDS: GUAIFENESIN 600MG ER TABLET PO SCH ×2 (08:20→21:21)
[2020-04-07] MEDS: POTASSIUM CHLORIDE 20MEQ TABLET SR PO SCH (08:20)
[2020-04-07] MEDS: INSULIN LISPRO 100 UNITS/ML SUBCUT SCH ×4 (08:21→21:41)
[2020-04-07] MEDS: LORAZEPAM 2MG/ML CPJ IV PRN (15:57)
[2020-04-08] VITALS (39 sets, daily range): BP systolic 96–130; BP diastolic 60–113
[2020-04-08 05:55] LABS: HEMATOCRIT. 39.2 % (36.0-48.0); HEMOGLOBIN. 12.7 g/dL (12.0-16.0); MEAN CORPUSCULAR HEMOGLOBIN 28.1 pg (28.0-32.0); MEAN CORPUSCULAR VOLUME 86.9 fL (81.0-99.0); PLATELET 367 x1000/uL (130-400); RED BLOOD CELL COUNT 4.51 mill/uL (4.2-5.4)
[2020-04-08 06:02] LABS: CHLORIDE 104 mEq/L (98-107)
[2020-04-08 06:13] LABS: PHOSPHORUS 4.3 mg/dL (2.5-4.9)
[2020-04-08] MEDS: METHYLPREDNISOLONE SOD SUCC 40 MG/ML VIAL IV SCH ×3 (07:05→20:51)
[2020-04-08] MEDS: ENOXAPARIN 60MG/0.6ML SYR SUBCUT SCH ×2 (07:06→18:09)
[2020-04-08] MEDS: BENZONATATE 100MG CAPSULE PO SCH ×3 (07:06→14:24)
[2020-04-08] MEDS: ALPRAZOLAM 0.25 MG TABLET PO SCH ×3 (07:07→20:50)
[2020-04-08] MEDS: BLOOD SUGAR DIAGNOSTIC STRIP TEST SCH ×4 (07:07→20:51)
[2020-04-08] MEDS: INSULIN LISPRO 100 UNITS/ML SUBCUT SCH ×4 (07:15→20:50)
[2020-04-08] MEDS: FUROSEMIDE 40MG TABLET PO SCH (08:26)
[2020-04-08] MEDS: POTASSIUM CHLORIDE 20MEQ TABLET SR PO SCH (08:26)
[2020-04-08] MEDS: GUAIFENESIN 600MG ER TABLET PO SCH ×2 (08:26→20:50)
[2020-04-08 08:55] LABS: NUCLEATED RED BLOOD CELLS 1 /100 WBC; PLATELET ESTIMATE NORMAL
[2020-04-08] MEDS: DOCUSATE SODIUM 100MG CAPSULE PO SCH (17:00)
[2020-04-09] VITALS (42 sets, daily range): BP systolic 88–151; BP diastolic 51–130
[2020-04-09 00:24] LABS: BG BASE EXCESS -0.3 mmol/L (-2.0-2.0); BG CARBOXYHEMOGLOBIN 0.5 % (0.5-1.5); BG DEOXYHEMOGLOBIN 4.8 % (0.0-5.0); BG METHEMOGLOBIN 0.4 % (0.0-1.5); BG OXYGEN SATURATION 95.2 % (92.0-98.5); BG OXYHEMOGLOBIN 94.3 % (94.0-97.0); BG PCO2 38.3 mmHg (35.0-45.0); BG PH 7.415 (7.350-7.450); BG PO2 72.3 mmHg (75.0-100.0)
[2020-04-09] MEDS: ENOXAPARIN 60MG/0.6ML SYR SUBCUT SCH ×2 (05:36→18:23)
[2020-04-09] MEDS: BENZONATATE 100MG CAPSULE PO SCH ×3 (05:36→21:13)
[2020-04-09] MEDS: METHYLPREDNISOLONE SOD SUCC 40 MG/ML VIAL IV SCH ×3 (05:36→21:13)
[2020-04-09] MEDS: ALPRAZOLAM 0.25 MG TABLET PO SCH ×3 (05:36→21:13)
[2020-04-09] MEDS: BLOOD SUGAR DIAGNOSTIC STRIP TEST SCH ×4 (06:51→21:13)
[2020-04-09] MEDS: INSULIN LISPRO 100 UNITS/ML SUBCUT SCH ×4 (07:18→21:14)
[2020-04-09] MEDS ORDERED: NA PHOS,M-B/NA PHOS,DI-BA ENEMA 118ML PR SCH (09:00)
[2020-04-09] MEDS ORDERED: LACTULOSE 20G/30ML UDC PO SCH (09:00)
[2020-04-09] MEDS: FUROSEMIDE 40MG TABLET PO SCH (09:21)
[2020-04-09] MEDS: GUAIFENESIN 600MG ER TABLET PO SCH ×2 (09:22→21:13)
[2020-04-09] MEDS: POTASSIUM CHLORIDE 20MEQ TABLET SR PO SCH (09:22)
[2020-04-09] MEDS: ERGOCALCIFEROL 50000UNITS CAPSULE PO SCH (09:22)
[2020-04-09] MEDS: DOCUSATE SODIUM 100MG CAPSULE PO SCH ×2 (09:22→18:22)
[2020-04-09] MEDS: BISACODYL 5MG TABLET PO PRN (09:22)
[2020-04-09] MEDS: LORAZEPAM 2MG/ML CPJ IV PRN (15:11)
[2020-04-10] VITALS (48 sets, daily range): BP systolic 96–147; BP diastolic 56–112
[2020-04-10] MEDS: BENZONATATE 100MG CAPSULE PO SCH ×3 (06:17→21:18)
[2020-04-10] MEDS: ENOXAPARIN 60MG/0.6ML SYR SUBCUT SCH ×2 (06:18→18:23)
[2020-04-10] MEDS: METHYLPREDNISOLONE SOD SUCC 40 MG/ML VIAL IV SCH ×3 (06:18→21:18)
[2020-04-10] MEDS: ALPRAZOLAM 0.25 MG TABLET PO SCH ×3 (06:18→21:18)
[2020-04-10] MEDS: INSULIN LISPRO 100 UNITS/ML SUBCUT SCH ×4 (06:19→21:20)
[2020-04-10] MEDS: BLOOD SUGAR DIAGNOSTIC STRIP TEST SCH ×4 (06:19→21:18)
[2020-04-10] MEDS: DOCUSATE SODIUM 100MG CAPSULE PO SCH ×2 (08:47→17:00)
[2020-04-10] MEDS: POTASSIUM CHLORIDE 20MEQ TABLET SR PO SCH (09:00)
[2020-04-10] MEDS: GUAIFENESIN 600MG ER TABLET PO SCH ×3 (09:03→21:18)
[2020-04-10] MEDS ORDERED: DICYCLOMINE HCL 10MG CAPSULE PO SCH (12:00)
[2020-04-10] MEDS: DICYCLOMINE HCL 10MG CAPSULE PO SCH ×3 (14:21→23:44)
[2020-04-10 20:54] LABS: CHLORIDE 98 mEq/L (98-107)
[2020-04-11] VITALS (35 sets, daily range): BP systolic 90–128; BP diastolic 47–79
[2020-04-11] MEDS: LORAZEPAM 2MG/ML CPJ IV PRN (00:58)
[2020-04-11] MEDS ORDERED: LORAZEPAM 2MG/ML CPJ IV PRN (01:00)
[2020-04-11] MEDS: BLOOD SUGAR DIAGNOSTIC STRIP TEST SCH ×4 (05:39→20:59)
[2020-04-11] MEDS: BENZONATATE 100MG CAPSULE PO SCH ×3 (05:59→21:00)
[2020-04-11] MEDS: ENOXAPARIN 60MG/0.6ML SYR SUBCUT SCH ×2 (05:59→17:49)
[2020-04-11] MEDS: DICYCLOMINE HCL 10MG CAPSULE PO SCH ×3 (05:59→17:49)
[2020-04-11] MEDS: ALPRAZOLAM 0.25 MG TABLET PO SCH ×3 (05:59→21:00)
[2020-04-11] MEDS: METHYLPREDNISOLONE SOD SUCC 40 MG/ML VIAL IV SCH ×3 (05:59→21:00)
[2020-04-11] MEDS: INSULIN LISPRO 100 UNITS/ML SUBCUT SCH ×4 (06:00→21:00)
[2020-04-11] MEDS: DOCUSATE SODIUM 100MG CAPSULE PO SCH ×2 (09:17→17:49)
[2020-04-11] MEDS: GUAIFENESIN 600MG ER TABLET PO SCH ×2 (09:21→20:59)
[2020-04-11 15:04] LABS: BG BASE EXCESS 1.9 mmol/L (-2.0-2.0); BG CARBOXYHEMOGLOBIN 0.6 % (0.5-1.5); BG DEOXYHEMOGLOBIN 6.8 % (0.0-5.0); BG HCO3 ACT 26.1 mmol/L (22.0-26.0); BG METHEMOGLOBIN 0.3 % (0.0-1.5); BG OXYGEN SATURATION 93.1 % (92.0-98.5); BG OXYHEMOGLOBIN 92.3 % (94.0-97.0); BG PCO2 39.7 mmHg (35.0-45.0); BG PH 7.436 (7.350-7.450); BG PO2 63.7 mmHg (75.0-100.0); BG SAMPLE SITE LEFT BRACHIAL; BG TOTAL HEMOGLOBIN 13.2 g/dL (12.0-18.0)
[2020-04-11 15:48] LABS: BG FRACTION INSPIRED OXYGEN 90; BG VENT MODE HIGH FLOW
[2020-04-12] VITALS (42 sets, daily range): BP systolic 96–168; BP diastolic 48–116
[2020-04-12] MEDS: LORAZEPAM 2MG/ML CPJ IV PRN ×2 (00:48→14:49)
[2020-04-12] MEDS: DICYCLOMINE HCL 10MG CAPSULE PO SCH ×3 (00:48→14:02)
[2020-04-12 05:00] LABS: HEMOGLOBIN. 11.4 g/dL (12.0-16.0); MEAN CORPUSCULAR HEMOGLOBIN 28.5 pg (28.0-32.0); MEAN CORPUSCULAR VOLUME 87.3 fL (81.0-99.0); MEAN PLATELET VOLUME 8.9 fl (7.4-10.4); PLATELET 188 x1000/uL (130-400); RED BLOOD CELL COUNT 4.01 mill/uL (4.2-5.4); RED CELL DISTRIBUTION WIDTH 14.1 % (11.6-14.6)
[2020-04-12 05:02] LABS: CHLORIDE 101 mEq/L (98-107)
[2020-04-12] MEDS: METHYLPREDNISOLONE SOD SUCC 40 MG/ML VIAL IV SCH ×3 (06:42→21:03)
[2020-04-12] MEDS: ENOXAPARIN 60MG/0.6ML SYR SUBCUT SCH ×2 (06:42→17:39)
[2020-04-12] MEDS: BENZONATATE 100MG CAPSULE PO SCH ×3 (06:43→21:03)
[2020-04-12] MEDS: INSULIN LISPRO 100 UNITS/ML SUBCUT SCH ×4 (06:51→21:04)
[2020-04-12] MEDS: BLOOD SUGAR DIAGNOSTIC STRIP TEST SCH ×4 (06:51→21:01)
[2020-04-12] MEDS: DOCUSATE SODIUM 100MG CAPSULE PO SCH ×2 (09:09→17:39)
[2020-04-12] MEDS: GUAIFENESIN 600MG ER TABLET PO SCH ×2 (09:09→21:03)
[2020-04-12 14:29] LABS: PLATELET ESTIMATE NORMAL
[2020-04-12] MEDS: BISACODYL 5MG TABLET PO PRN (17:39)
[2020-04-12] MEDS: SIMETHICONE 80MG TABLET CHEW PO SCH (18:43)
[2020-04-13] VITALS (42 sets, daily range): BP systolic 102–155; BP diastolic 50–99
[2020-04-13] MEDS: LORAZEPAM 2MG/ML CPJ IV PRN (00:28)
[2020-04-13] MEDS: BENZONATATE 100MG CAPSULE PO SCH ×3 (05:55→21:28)
[2020-04-13] MEDS: METHYLPREDNISOLONE SOD SUCC 40 MG/ML VIAL IV SCH ×3 (05:55→21:28)
[2020-04-13] MEDS: ENOXAPARIN 60MG/0.6ML SYR SUBCUT SCH ×2 (05:55→18:53)
[2020-04-13] MEDS: BLOOD SUGAR DIAGNOSTIC STRIP TEST SCH ×4 (06:05→21:00)
[2020-04-13] MEDS: INSULIN LISPRO 100 UNITS/ML SUBCUT SCH ×4 (06:05→21:29)
[2020-04-13] MEDS: POLYETHYLENE GLYCOL 3350 (17GM) 1 DOSE PACK PO SCH (10:00)
[2020-04-13] MEDS: DOCUSATE SODIUM 100MG CAPSULE PO SCH ×2 (11:04→18:53)
[2020-04-13] MEDS: SIMETHICONE 80MG TABLET CHEW PO SCH ×3 (11:04→18:53)
[2020-04-13] MEDS: GUAIFENESIN 600MG ER TABLET PO SCH ×2 (11:04→21:28)
[2020-04-13] MEDS: ALPRAZOLAM 0.25 MG TABLET PO SCH ×2 (13:43→21:28)
[2020-04-13] MEDS: HYDROCODONE/APAP 7.5/325MG 1 TAB TABLET PO PRN (21:43)
[2020-04-14] VITALS (13 sets, daily range): BP systolic 101–170; BP diastolic 31–74
[2020-04-14 01:55] LABS: CLARITY URINE CLEAR (CLEAR); COLOR URINE YELLOW (YELLOW); KETONES URINE NEGATIVE (NEGATIVE); LEUKOCYTE ESTERASE URINE NEGATIVE (NEGATIVE); NITRITE URINE NEGATIVE (NEGATIVE); OCCULT BLOOD URINE NEGATIVE (NEGATIVE); PROTEIN URINE TRACE (NEGATIVE); SPECIFIC GRAVITY URINE 1.024 (1.005-1.030)
[2020-04-14] MEDS: HYDROCODONE/APAP 7.5/325MG 1 TAB TABLET PO PRN ×2 (04:52→11:14)
[2020-04-14] MEDS: ENOXAPARIN 60MG/0.6ML SYR SUBCUT SCH ×2 (05:43→18:05)
[2020-04-14] MEDS: BENZONATATE 100MG CAPSULE PO SCH ×3 (05:44→20:57)
[2020-04-14] MEDS: ALPRAZOLAM 0.25 MG TABLET PO SCH ×3 (05:44→20:56)
[2020-04-14] MEDS: METHYLPREDNISOLONE SOD SUCC 40 MG/ML VIAL IV SCH ×3 (05:44→20:56)
[2020-04-14] MEDS: BLOOD SUGAR DIAGNOSTIC STRIP TEST SCH ×4 (07:30→21:22)
[2020-04-14] MEDS: INSULIN LISPRO 100 UNITS/ML SUBCUT SCH ×4 (08:00→22:28)
[2020-04-14] MEDS: DOCUSATE SODIUM 100MG CAPSULE PO SCH ×2 (09:00→16:42)
[2020-04-14] MEDS: POLYETHYLENE GLYCOL 3350 (17GM) 1 DOSE PACK PO SCH (09:39)
[2020-04-14] MEDS: SIMETHICONE 80MG TABLET CHEW PO SCH ×3 (09:39→18:05)
[2020-04-14] MEDS: GUAIFENESIN 600MG ER TABLET PO SCH ×2 (09:39→20:57)
[2020-04-14] MEDS ORDERED: LACTULOSE 20G/30ML UDC PO PRN (12:00)
[2020-04-14] MEDS ORDERED: KETOROLAC 15MG/ML VIAL IV PRN (12:00)
[2020-04-15] VITALS (11 sets, daily range): BP systolic 108–169; BP diastolic 60–93
[2020-04-15] MEDS: LORAZEPAM 2MG/ML CPJ IV PRN ×2 (04:27→12:57)
[2020-04-15] MEDS: ALPRAZOLAM 0.25 MG TABLET PO SCH ×3 (06:00→20:49)
[2020-04-15] MEDS: ENOXAPARIN 60MG/0.6ML SYR SUBCUT SCH (06:00)
[2020-04-15] MEDS: BENZONATATE 100MG CAPSULE PO SCH ×3 (06:00→20:48)
[2020-04-15] MEDS: METHYLPREDNISOLONE SOD SUCC 40 MG/ML VIAL IV SCH ×3 (06:06→20:47)
[2020-04-15] MEDS: INSULIN LISPRO 100 UNITS/ML SUBCUT SCH ×4 (08:00→21:19)
[2020-04-15] MEDS: BLOOD SUGAR DIAGNOSTIC STRIP TEST SCH ×4 (08:15→20:48)
[2020-04-15] MEDS ORDERED: HYDROCODONE/APAP 7.5/325MG 1 TAB TABLET PO PRN (08:45)
[2020-04-15] MEDS: GUAIFENESIN 600MG ER TABLET PO SCH ×2 (08:47→20:51)
[2020-04-15] MEDS: POLYETHYLENE GLYCOL 3350 (17GM) 1 DOSE PACK PO SCH (08:48)
[2020-04-15] MEDS: SIMETHICONE 80MG TABLET CHEW PO SCH ×3 (08:49→18:04)
[2020-04-15] MEDS: DOCUSATE SODIUM 100MG CAPSULE PO SCH ×2 (08:54→17:00)
[2020-04-15 09:11] LABS: HEMATOCRIT. 33.2 % (36.0-48.0); HEMOGLOBIN. 11.2 g/dL (12.0-16.0); MEAN CORPUSCULAR HEMOGLOBIN 29.2 pg (28.0-32.0); MEAN CORPUSCULAR VOLUME 86.9 fL (81.0-99.0); MEAN PLATELET VOLUME 8.6 fl (7.4-10.4); PLATELET 134 x1000/uL (130-400); RED BLOOD CELL COUNT 3.82 mill/uL (4.2-5.4); RED CELL DISTRIBUTION WIDTH 14.6 % (11.6-14.6)
[2020-04-15 11:14] LABS: BG BASE EXCESS 0.8 mmol/L (-2.0-2.0); BG CARBOXYHEMOGLOBIN 0.6 % (0.5-1.5); BG DEOXYHEMOGLOBIN 4.9 % (0.0-5.0); BG FRACTION INSPIRED OXYGEN 99.9; BG HCO3 ACT 24.7 mmol/L (22.0-26.0); BG METHEMOGLOBIN 0.1 % (0.0-1.5); BG OXYGEN SATURATION 95.1 % (92.0-98.5); BG OXYHEMOGLOBIN 94.4 % (94.0-97.0); BG PCO2 36.8 mmHg (35.0-45.0); BG PH 7.445 (7.350-7.450); BG SAMPLE SITE LEFT BRACHIAL; BG TOTAL HEMOGLOBIN 11.5 g/dL (12.0-18.0); BG VENT MODE MASK - NRB
[2020-04-15] MEDS: HYDROCORTISONE 1% RECTAL CREAM 30GM PR SCH ×2 (13:30→20:48)
[2020-04-15] MEDS: HEMORRHOIDAL SUPP PR SCH ×2 (15:40→20:47)
[2020-04-15 16:20] LABS: HEMOGLOBIN 11.2 g/dL (12.0-16.0)
[2020-04-15 17:53] LABS: PLATELET ESTIMATE NORMAL
[2020-04-16] VITALS (10 sets, daily range): BP systolic 100–135; BP diastolic 53–77
[2020-04-16] MEDS: LORAZEPAM 2MG/ML CPJ IV PRN (00:18)
[2020-04-16 02:11] LABS: HEMATOCRIT 30.5 % (36.0-48.0); HEMOGLOBIN 10.1 g/dL (12.0-16.0)
[2020-04-16] MEDS: METHYLPREDNISOLONE SOD SUCC 40 MG/ML VIAL IV SCH ×3 (05:31→21:16)
[2020-04-16] MEDS: BENZONATATE 100MG CAPSULE PO SCH ×3 (05:31→21:16)
[2020-04-16] MEDS: ALPRAZOLAM 0.25 MG TABLET PO SCH ×3 (05:32→21:16)
[2020-04-16] MEDS: BLOOD SUGAR DIAGNOSTIC STRIP TEST SCH ×4 (07:30→21:00)
[2020-04-16 08:43] LABS: HEMATOCRIT 29.6 % (36.0-48.0)
[2020-04-16] MEDS: INSULIN LISPRO 100 UNITS/ML SUBCUT SCH ×4 (08:59→21:10)
[2020-04-16] MEDS: DOCUSATE SODIUM 100MG CAPSULE PO SCH ×2 (09:00→17:00)
[2020-04-16] MEDS: POLYETHYLENE GLYCOL 3350 (17GM) 1 DOSE PACK PO SCH (09:00)
[2020-04-16] MEDS: GUAIFENESIN 600MG ER TABLET PO SCH ×2 (09:00→20:53)
[2020-04-16] MEDS: ERGOCALCIFEROL 50000UNITS CAPSULE PO SCH (09:00)
[2020-04-16] MEDS: HYDROCORTISONE 1% RECTAL CREAM 30GM PR SCH (09:00)
[2020-04-16] MEDS: HEMORRHOIDAL SUPP PR SCH ×2 (09:03→20:53)
[2020-04-16] MEDS: SIMETHICONE 80MG TABLET CHEW PO SCH ×3 (09:15→18:14)
[2020-04-16 15:57] LABS: HEMATOCRIT. 31.8 % (36.0-48.0); HEMOGLOBIN. 10.7 g/dL (12.0-16.0); MEAN CORPUSCULAR HEMOGLOBIN 29.4 pg (28.0-32.0); MEAN CORPUSCULAR VOLUME 87.5 fL (81.0-99.0); MEAN PLATELET VOLUME 9.2 fl (7.4-10.4); PLATELET 149 x1000/uL (130-400); RED BLOOD CELL COUNT 3.64 mill/uL (4.2-5.4); RED CELL DISTRIBUTION WIDTH 14.7 % (11.6-14.6)
[2020-04-16 16:02] LABS: CHLORIDE 99 mEq/L (98-107)
[2020-04-16 16:57] LABS: PLATELET ESTIMATE NORMAL
[2020-04-16] MEDS: HYDROCORTISONE 1% CREAM 30GM PR SCH ×2 (18:18→20:54)
[2020-04-17] VITALS (7 sets, daily range): BP systolic 110–145; BP diastolic 65–83
[2020-04-17] MEDS: BENZONATATE 100MG CAPSULE PO SCH ×3 (05:46→21:11)
[2020-04-17] MEDS: ALPRAZOLAM 0.25 MG TABLET PO SCH ×3 (05:46→21:12)
[2020-04-17] MEDS: METHYLPREDNISOLONE SOD SUCC 40 MG/ML VIAL IV SCH ×3 (05:46→21:09)
[2020-04-17] MEDS: INSULIN LISPRO 100 UNITS/ML SUBCUT SCH ×4 (08:00→21:36)
[2020-04-17] MEDS: BLOOD SUGAR DIAGNOSTIC STRIP TEST SCH ×4 (08:25→21:00)
[2020-04-17] MEDS: DOCUSATE SODIUM 100MG CAPSULE PO SCH ×3 (08:27→16:21)
[2020-04-17] MEDS: GUAIFENESIN 600MG ER TABLET PO SCH ×2 (08:27→21:11)
[2020-04-17] MEDS: SIMETHICONE 80MG TABLET CHEW PO SCH ×3 (08:27→16:22)
[2020-04-17] MEDS: POLYETHYLENE GLYCOL 3350 (17GM) 1 DOSE PACK PO SCH (08:28)
[2020-04-17] MEDS: HEMORRHOIDAL SUPP PR SCH ×2 (08:29→21:11)
[2020-04-17] MEDS: HYDROCORTISONE 1% CREAM 30GM PR SCH ×2 (08:30→21:11)
[2020-04-17 13:56] LABS: PROTHROMBIN TIME 10.2 sec (9.6-11.0)
[2020-04-17 16:51] LABS: HEMATOCRIT 30.1 % (36.0-48.0); HEMOGLOBIN 10.2 g/dL (12.0-16.0)
[2020-04-17] MEDS: ENOXAPARIN 60MG/0.6ML SYR SUBCUT SCH (21:10)
[2020-04-18] VITALS: BP 123/62
[2020-04-18 02:00] VITALS: BP 127/55
[2020-04-18] MEDS: METHYLPREDNISOLONE SOD SUCC 40 MG/ML VIAL IV SCH ×3 (05:02→21:12)
[2020-04-18] MEDS: ALPRAZOLAM 0.25 MG TABLET PO SCH ×3 (05:03→21:17)
[2020-04-18] MEDS: BENZONATATE 100MG CAPSULE PO SCH ×3 (05:03→21:13)
[2020-04-18 06:00] VITALS: BP 126/71
[2020-04-18 06:54] LABS: HEMATOCRIT. 27.9 % (36.0-48.0); HEMOGLOBIN. 9.5 g/dL (12.0-16.0); MEAN CORPUSCULAR HEMOGLOBIN 30.1 pg (28.0-32.0); PLATELET 95 x1000/uL (130-400); RED BLOOD CELL COUNT 3.17 mill/uL (4.2-5.4); RED CELL DISTRIBUTION WIDTH 15.1 % (11.6-14.6)
[2020-04-18] MEDS: BLOOD SUGAR DIAGNOSTIC STRIP TEST SCH ×4 (07:30→21:00)
[2020-04-18] MEDS: INSULIN LISPRO 100 UNITS/ML SUBCUT SCH ×4 (08:00→22:24)
[2020-04-18] MEDS: IPRATROPIUM/ALBUTEROL 0.5-3(2.5)MG/3ML NEB NEB PRN ×2 (08:41→12:09)
[2020-04-18] MEDS: POLYETHYLENE GLYCOL 3350 (17GM) 1 DOSE PACK PO SCH ×2 (09:00→17:50)
[2020-04-18] MEDS: HEMORRHOIDAL SUPP PR SCH ×3 (09:00→21:13)
[2020-04-18] MEDS: HYDROCORTISONE 1% CREAM 30GM PR SCH ×2 (09:00→21:13)
[2020-04-18] MEDS: DOCUSATE SODIUM 100MG CAPSULE PO SCH ×2 (09:00→17:00)
[2020-04-18] MEDS: GUAIFENESIN 600MG ER TABLET PO SCH ×2 (09:22→21:13)
[2020-04-18] MEDS: SIMETHICONE 80MG TABLET CHEW PO SCH ×3 (09:22→17:48)
[2020-04-18] MEDS: ENOXAPARIN 60MG/0.6ML SYR SUBCUT SCH ×2 (09:23→21:12)
[2020-04-18 12:00] VITALS: BP 144/77
[2020-04-18 13:07] LABS: ANTI-NUCLEAR ANTIBODIES DIRECT Positive (Negative)
[2020-04-18] MEDS: IPRATROPIUM/ALBUTEROL 0.5-3(2.5)MG/3ML NEB HHN SCH ×2 (16:33→20:45)
[2020-04-18 18:00] VITALS: BP 123/73
[2020-04-18 20:00] VITALS: BP 125/72
[2020-04-18 21:02] LABS: PLATELET ESTIMATE DECREASED
[2020-04-19] VITALS: BP 125/69
[2020-04-19] MEDS: IPRATROPIUM/ALBUTEROL 0.5-3(2.5)MG/3ML NEB HHN SCH ×4 (02:30→21:30)
[2020-04-19] MEDS: BENZONATATE 100MG CAPSULE PO SCH ×3 (05:51→20:47)
[2020-04-19] MEDS: ALPRAZOLAM 0.25 MG TABLET PO SCH ×3 (05:51→21:01)
[2020-04-19 06:00] VITALS: BP 126/70
[2020-04-19 06:37] LABS: CHLORIDE 101 mEq/L (98-107)
[2020-04-19 06:53] LABS: HEMATOCRIT. 28.3 % (36.0-48.0); HEMOGLOBIN. 9.7 g/dL (12.0-16.0); MEAN CORPUSCULAR HEMOGLOBIN 29.8 pg (28.0-32.0); MEAN CORPUSCULAR VOLUME 87.5 fL (81.0-99.0); MEAN PLATELET VOLUME 8.4 fl (7.4-10.4); PLATELET 96 x1000/uL (130-400); RED BLOOD CELL COUNT 3.24 mill/uL (4.2-5.4); RED CELL DISTRIBUTION WIDTH 14.7 % (11.6-14.6)
[2020-04-19] MEDS: INSULIN LISPRO 100 UNITS/ML SUBCUT SCH ×4 (07:58→21:51)
[2020-04-19] MEDS: BLOOD SUGAR DIAGNOSTIC STRIP TEST SCH ×4 (07:58→20:49)
[2020-04-19] MEDS: METHYLPREDNISOLONE SOD SUCC 40 MG/ML VIAL IV SCH ×2 (08:56→20:47)
[2020-04-19] MEDS: POLYETHYLENE GLYCOL 3350 (17GM) 1 DOSE PACK PO SCH (08:56)
[2020-04-19] MEDS: DOCUSATE SODIUM 100MG CAPSULE PO SCH ×2 (08:56→17:00)
[2020-04-19] MEDS: GUAIFENESIN 600MG ER TABLET PO SCH ×2 (08:56→20:47)
[2020-04-19] MEDS: SIMETHICONE 80MG TABLET CHEW PO SCH ×3 (08:56→17:35)
[2020-04-19] MEDS: ENOXAPARIN 60MG/0.6ML SYR SUBCUT SCH ×2 (08:57→20:48)
[2020-04-19] MEDS: HEMORRHOIDAL SUPP PR SCH ×2 (08:58→21:01)
[2020-04-19] MEDS: HYDROCORTISONE 1% CREAM 30GM PR SCH ×2 (09:00→21:00)
[2020-04-19 12:00] VITALS: BP 121/68
[2020-04-19 14:08] LABS: PLATELET ESTIMATE SLIGHTLY DECREASED
[2020-04-19 17:09] LABS: ANTI-MYELOPEROXIDASE AB < 9.0 U/mL (0.0-9.0); ANTI-PROTEINASE 3 ABS < 3.5 U/mL (0.0-3.5)
[2020-04-19 18:00] VITALS: BP 126/62
[2020-04-19 20:00] VITALS: BP 116/50
[2020-04-20] VITALS: BP 120/59
[2020-04-20] MEDS: IPRATROPIUM/ALBUTEROL 0.5-3(2.5)MG/3ML NEB HHN SCH ×4 (04:21→22:30)
[2020-04-20] MEDS: BENZONATATE 100MG CAPSULE PO SCH ×3 (05:15→21:14)
[2020-04-20] MEDS: ALPRAZOLAM 0.25 MG TABLET PO SCH ×3 (05:16→21:14)
[2020-04-20 06:00] VITALS: BP 101/58
[2020-04-20 06:34] LABS: HEMOGLOBIN. 9.9 g/dL (12.0-16.0); MEAN CORPUSCULAR HEMOGLOBIN 30.1 pg (28.0-32.0); MEAN CORPUSCULAR VOLUME 88.6 fL (81.0-99.0); MEAN PLATELET VOLUME 8.4 fl (7.4-10.4); PLATELET 98 x1000/uL (130-400); RED BLOOD CELL COUNT 3.27 mill/uL (4.2-5.4); RED CELL DISTRIBUTION WIDTH 15.5 % (11.6-14.6)
[2020-04-20] MEDS: BLOOD SUGAR DIAGNOSTIC STRIP TEST SCH ×4 (07:30→21:16)
[2020-04-20] MEDS: INSULIN LISPRO 100 UNITS/ML SUBCUT SCH ×4 (08:00→21:00)
[2020-04-20] MEDS: DOCUSATE SODIUM 100MG CAPSULE PO SCH ×2 (09:00→17:00)
[2020-04-20] MEDS: HEMORRHOIDAL SUPP PR SCH ×2 (09:27→21:16)
[2020-04-20] MEDS: GUAIFENESIN 600MG ER TABLET PO SCH ×2 (09:27→21:14)
[2020-04-20] MEDS: SIMETHICONE 80MG TABLET CHEW PO SCH ×3 (09:27→17:52)
[2020-04-20] MEDS: POLYETHYLENE GLYCOL 3350 (17GM) 1 DOSE PACK PO SCH (09:28)
[2020-04-20] MEDS: METHYLPREDNISOLONE SOD SUCC 40 MG/ML VIAL IV SCH ×2 (09:28→21:14)
[2020-04-20] MEDS: HYDROCORTISONE 1% CREAM 30GM PR SCH ×2 (09:31→21:15)
[2020-04-20] MEDS: ENOXAPARIN 60MG/0.6ML SYR SUBCUT SCH (09:31)
[2020-04-20 12:00] VITALS: BP 128/75
[2020-04-20 13:37] LABS: PLATELET ESTIMATE DECREASED
[2020-04-20 18:00] VITALS: BP 99/79
[2020-04-20 20:00] VITALS: BP 116/70
[2020-04-20 22:00] VITALS: BP 116/59
[2020-04-21] VITALS (12 sets, daily range): BP systolic 105–150; BP diastolic 39–98
[2020-04-21] MEDS: IPRATROPIUM/ALBUTEROL 0.5-3(2.5)MG/3ML NEB HHN SCH ×3 (03:31→13:33)
[2020-04-21] MEDS: BENZONATATE 100MG CAPSULE PO SCH ×3 (05:24→21:30)
[2020-04-21] MEDS: ALPRAZOLAM 0.25 MG TABLET PO SCH ×3 (05:24→21:31)
[2020-04-21 05:58] LABS: HEMATOCRIT. 27.4 % (36.0-48.0); HEMOGLOBIN. 9.3 g/dL (12.0-16.0); MEAN CORPUSCULAR HEMOGLOBIN 30.1 pg (28.0-32.0); MEAN PLATELET VOLUME 8.2 fl (7.4-10.4); PLATELET 93 x1000/uL (130-400); RED BLOOD CELL COUNT 3.08 mill/uL (4.2-5.4); RED CELL DISTRIBUTION WIDTH 15.7 % (11.6-14.6)
[2020-04-21] MEDS: INSULIN LISPRO 100 UNITS/ML SUBCUT SCH ×4 (08:00→21:30)
[2020-04-21] MEDS: BLOOD SUGAR DIAGNOSTIC STRIP TEST SCH ×4 (08:29→21:00)
[2020-04-21] MEDS: SIMETHICONE 80MG TABLET CHEW PO SCH ×3 (08:30→17:25)
[2020-04-21] MEDS: METHYLPREDNISOLONE SOD SUCC 40 MG/ML VIAL IV SCH (08:30)
[2020-04-21] MEDS: GUAIFENESIN 600MG ER TABLET PO SCH ×2 (08:30→21:30)
[2020-04-21] MEDS: DOCUSATE SODIUM 100MG CAPSULE PO SCH ×2 (08:31→17:00)
[2020-04-21] MEDS: POLYETHYLENE GLYCOL 3350 (17GM) 1 DOSE PACK PO SCH (08:31)
[2020-04-21] MEDS: HEMORRHOIDAL SUPP PR SCH ×2 (08:32→21:00)
[2020-04-21] MEDS: HYDROCORTISONE 1% CREAM 30GM PR SCH ×2 (08:32→21:32)
[2020-04-21 13:07] LABS: ATYPICAL P-ANCA <1:20 titer (Neg:<1:20); CYTOPLASMIC C-ANCA <1:20 titer (Neg:<1:20); PERINUCLEAR P-ANCA <1:20 titer (Neg:<1:20)
[2020-04-21 16:27] LABS: PLATELET ESTIMATE DECREASED
[2020-04-22] VITALS (9 sets, daily range): BP systolic 99–125; BP diastolic 60–76
[2020-04-22] MEDS: IPRATROPIUM/ALBUTEROL 0.5-3(2.5)MG/3ML NEB HHN SCH ×3 (03:21→21:35)
[2020-04-22] MEDS: BENZONATATE 100MG CAPSULE PO SCH ×3 (07:07→21:04)
[2020-04-22] MEDS: ALPRAZOLAM 0.25 MG TABLET PO SCH ×3 (07:07→21:04)
[2020-04-22] MEDS: BLOOD SUGAR DIAGNOSTIC STRIP TEST SCH ×4 (07:37→21:06)
[2020-04-22] MEDS: INSULIN LISPRO 100 UNITS/ML SUBCUT SCH ×4 (08:30→21:19)
[2020-04-22] MEDS: METHYLPREDNISOLONE SOD SUCC 40 MG/ML VIAL IV SCH (08:54)
[2020-04-22] MEDS: GUAIFENESIN 600MG ER TABLET PO SCH ×2 (08:54→21:04)
[2020-04-22] MEDS: SIMETHICONE 80MG TABLET CHEW PO SCH ×3 (08:54→17:56)
[2020-04-22] MEDS: HYDROCORTISONE 1% CREAM 30GM PR SCH ×2 (09:00→21:05)
[2020-04-22] MEDS: DOCUSATE SODIUM 100MG CAPSULE PO SCH ×2 (09:00→16:14)
[2020-04-22] MEDS: POLYETHYLENE GLYCOL 3350 (17GM) 1 DOSE PACK PO SCH ×2 (09:00→21:18)
[2020-04-22] MEDS: HEMORRHOIDAL SUPP PR SCH ×2 (09:00→21:05)
[2020-04-23] VITALS (8 sets, daily range): BP systolic 100–143; BP diastolic 56–90
[2020-04-23] MEDS: BENZONATATE 100MG CAPSULE PO SCH ×3 (05:37→21:29)
[2020-04-23] MEDS: ALPRAZOLAM 0.25 MG TABLET PO SCH ×2 (05:39→13:35)
[2020-04-23] MEDS: BLOOD SUGAR DIAGNOSTIC STRIP TEST SCH ×4 (07:30→21:00)
[2020-04-23] MEDS: INSULIN LISPRO 100 UNITS/ML SUBCUT SCH ×4 (08:00→21:31)
[2020-04-23] MEDS: ERGOCALCIFEROL 50000UNITS CAPSULE PO SCH (08:32)
[2020-04-23] MEDS: DOCUSATE SODIUM 100MG CAPSULE PO SCH ×3 (08:32→17:00)
[2020-04-23] MEDS: SIMETHICONE 80MG TABLET CHEW PO SCH ×3 (08:32→17:51)
[2020-04-23] MEDS: METHYLPREDNISOLONE SOD SUCC 40 MG/ML VIAL IV SCH (08:32)
[2020-04-23] MEDS: POLYETHYLENE GLYCOL 3350 (17GM) 1 DOSE PACK PO SCH (08:32)
[2020-04-23] MEDS: HEMORRHOIDAL SUPP PR SCH ×2 (08:32→21:31)
[2020-04-23] MEDS: HYDROCORTISONE 1% CREAM 30GM PR SCH ×2 (08:34→21:33)
[2020-04-23] MEDS: IPRATROPIUM/ALBUTEROL 0.5-3(2.5)MG/3ML NEB HHN SCH ×3 (09:19→21:01)
[2020-04-23] MEDS: METHYLPREDNISOLONE SOD SUCC 125 MG/2 ML VIAL IV SCH ×2 (12:11→21:29)
[2020-04-23] MEDS: GUAIFENESIN 600MG ER TABLET PO SCH ×2 (15:16→21:30)
[2020-04-23] MEDS: LORAZEPAM 2MG/ML CPJ IV PRN (22:37)
[2020-04-24] VITALS (11 sets, daily range): BP systolic 99–147; BP diastolic 59–83
[2020-04-24] MEDS: IPRATROPIUM/ALBUTEROL 0.5-3(2.5)MG/3ML NEB HHN SCH ×4 (02:58→22:12)
[2020-04-24] MEDS: BENZONATATE 100MG CAPSULE PO SCH ×3 (05:48→20:51)
[2020-04-24 07:09] LABS: CHLORIDE 102 mEq/L (98-107); HEMATOCRIT. 28.2 % (36.0-48.0); HEMOGLOBIN. 9.5 g/dL (12.0-16.0); MEAN CORPUSCULAR HEMOGLOBIN 30.4 pg (28.0-32.0); MEAN PLATELET VOLUME 8.6 fl (7.4-10.4); PLATELET 110 x1000/uL (130-400); RED BLOOD CELL COUNT 3.13 mill/uL (4.2-5.4); RED CELL DISTRIBUTION WIDTH 16.3 % (11.6-14.6)
[2020-04-24] MEDS: BLOOD SUGAR DIAGNOSTIC STRIP TEST SCH ×4 (07:40→20:51)
[2020-04-24] MEDS: DOCUSATE SODIUM 100MG CAPSULE PO SCH ×2 (09:00→17:00)
[2020-04-24] MEDS: GUAIFENESIN 600MG ER TABLET PO SCH (09:00)
[2020-04-24] MEDS: INSULIN LISPRO 100 UNITS/ML SUBCUT SCH ×5 (09:45→20:48)
[2020-04-24] MEDS: POLYETHYLENE GLYCOL 3350 (17GM) 1 DOSE PACK PO SCH (09:47)
[2020-04-24] MEDS: SIMETHICONE 80MG TABLET CHEW PO SCH ×3 (09:47→17:42)
[2020-04-24] MEDS: METHYLPREDNISOLONE SOD SUCC 125 MG/2 ML VIAL IV SCH ×2 (09:47→20:49)
[2020-04-24] MEDS: HEMORRHOIDAL SUPP PR SCH ×2 (09:48→20:49)
[2020-04-24] MEDS: HYDROCORTISONE 1% CREAM 30GM PR SCH ×2 (09:48→20:50)
[2020-04-24] MEDS: ALPRAZOLAM 0.25 MG TABLET PO SCH ×3 (10:57→20:51)
[2020-04-24] MEDS ORDERED: DEXTROSE 50% WATER 50ML SYRINGE IV PRN ×2 (13:15→17:30)
[2020-04-24] MEDS ORDERED: BLOOD SUGAR DIAGNOSTIC STRIP TEST SCH (17:30)
[2020-04-25] VITALS (12 sets, daily range): BP systolic 102–143; BP diastolic 54–87
[2020-04-25] MEDS: IPRATROPIUM/ALBUTEROL 0.5-3(2.5)MG/3ML NEB HHN SCH ×4 (03:06→21:18)
[2020-04-25] MEDS: BENZONATATE 100MG CAPSULE PO SCH ×3 (05:28→21:05)
[2020-04-25] MEDS: ALPRAZOLAM 0.25 MG TABLET PO SCH ×3 (05:30→21:05)
[2020-04-25] MEDS: BLOOD SUGAR DIAGNOSTIC STRIP TEST SCH ×4 (07:30→21:06)
[2020-04-25 07:32] LABS: HEMOGLOBIN. 9.2 g/dL (12.0-16.0); MEAN CORPUSCULAR HEMOGLOBIN 30.7 pg (28.0-32.0); MEAN CORPUSCULAR VOLUME 89.6 fL (81.0-99.0); MEAN PLATELET VOLUME 8.1 fl (7.4-10.4); PLATELET 120 x1000/uL (130-400); RED BLOOD CELL COUNT 3.01 mill/uL (4.2-5.4); RED CELL DISTRIBUTION WIDTH 16.3 % (11.6-14.6)
[2020-04-25 07:39] LABS: CHLORIDE 103 mEq/L (98-107)
[2020-04-25] MEDS: INSULIN LISPRO 100 UNITS/ML SUBCUT SCH ×4 (08:00→21:06)
[2020-04-25] MEDS: METHYLPREDNISOLONE SOD SUCC 125 MG/2 ML VIAL IV SCH ×2 (08:38→21:05)
[2020-04-25] MEDS: DOCUSATE SODIUM 100MG CAPSULE PO SCH ×2 (08:39→08:49)
[2020-04-25] MEDS: POLYETHYLENE GLYCOL 3350 (17GM) 1 DOSE PACK PO SCH (08:39)
[2020-04-25] MEDS: HEMORRHOIDAL SUPP PR SCH ×2 (08:39→21:00)
[2020-04-25] MEDS: SIMETHICONE 80MG TABLET CHEW PO SCH ×3 (08:45→16:34)
[2020-04-25] MEDS: HYDROCORTISONE 1% CREAM 30GM PR SCH ×2 (08:46→21:06)
[2020-04-25] MEDS: ENOXAPARIN 40MG/0.4ML SYR SUBCUT SCH (10:19)
[2020-04-25] MEDS: LORAZEPAM 2MG/ML CPJ IV PRN (12:33)
[2020-04-25 17:59] LABS: PLATELET ESTIMATE SLIGHTLY DECREASED
[2020-04-25 20:10] LABS: PLATELET ESTIMATE DECREASED
[2020-04-26] VITALS (12 sets, daily range): BP systolic 96–125; BP diastolic 55–76
[2020-04-26] MEDS: IPRATROPIUM/ALBUTEROL 0.5-3(2.5)MG/3ML NEB HHN SCH ×3 (02:46→11:18)
[2020-04-26] MEDS: BENZONATATE 100MG CAPSULE PO SCH ×2 (05:26→14:20)
[2020-04-26] MEDS: ALPRAZOLAM 0.25 MG TABLET PO SCH ×3 (05:26→21:44)
[2020-04-26] MEDS: BLOOD SUGAR DIAGNOSTIC STRIP TEST SCH ×4 (07:33→21:30)
[2020-04-26] MEDS: INSULIN LISPRO 100 UNITS/ML SUBCUT SCH ×4 (08:35→21:31)
[2020-04-26] MEDS: ENOXAPARIN 40MG/0.4ML SYR SUBCUT SCH (08:37)
[2020-04-26] MEDS: SIMETHICONE 80MG TABLET CHEW PO SCH ×3 (08:37→17:27)
[2020-04-26] MEDS: METHYLPREDNISOLONE SOD SUCC 125 MG/2 ML VIAL IV SCH ×2 (08:37→21:29)
[2020-04-26] MEDS: HEMORRHOIDAL SUPP PR SCH ×3 (08:38→21:00)
[2020-04-26] MEDS: DOCUSATE SODIUM 100MG CAPSULE PO SCH ×2 (08:38→17:00)
[2020-04-26] MEDS: POLYETHYLENE GLYCOL 3350 (17GM) 1 DOSE PACK PO SCH (08:38)
[2020-04-26] MEDS: HYDROCORTISONE 1% CREAM 30GM PR SCH ×2 (08:39→21:30)
[2020-04-27] VITALS (12 sets, daily range): BP systolic 98–125; BP diastolic 55–95
[2020-04-27] MEDS: ALPRAZOLAM 0.25 MG TABLET PO SCH ×3 (05:04→21:25)
[2020-04-27] MEDS: BLOOD SUGAR DIAGNOSTIC STRIP TEST SCH ×4 (07:30→18:30)
[2020-04-27] MEDS: INSULIN LISPRO 100 UNITS/ML SUBCUT SCH ×4 (08:00→22:06)
[2020-04-27] MEDS: DOCUSATE SODIUM 100MG CAPSULE PO SCH ×2 (09:00→17:00)
[2020-04-27] MEDS: SIMETHICONE 80MG TABLET CHEW PO SCH ×3 (09:01→18:47)
[2020-04-27] MEDS: POLYETHYLENE GLYCOL 3350 (17GM) 1 DOSE PACK PO SCH (09:01)
[2020-04-27] MEDS: METHYLPREDNISOLONE SOD SUCC 125 MG/2 ML VIAL IV SCH (09:02)
[2020-04-27] MEDS: ENOXAPARIN 40MG/0.4ML SYR SUBCUT SCH (09:10)
[2020-04-27] MEDS: HEMORRHOIDAL SUPP PR SCH ×2 (09:11→21:26)
[2020-04-27] MEDS: HYDROCORTISONE 1% CREAM 30GM PR SCH ×2 (09:13→21:26)
[2020-04-27] MEDS: IPRATROPIUM/ALBUTEROL 0.5-3(2.5)MG/3ML NEB HHN SCH ×3 (09:34→21:15)
[2020-04-27] MEDS: ACETYLCYSTEINE 100MG/ML 10% VIAL 4ML INH SCH (15:00)
[2020-04-27] MEDS: METHYLPREDNISOLONE SOD SUCC 40 MG/ML VIAL IV SCH (21:25)
[2020-04-27] MEDS: INSULIN GLARGINE UD 100 UNITS/ML SYR SUBCUT SCH (22:06)
[2020-04-28] VITALS (12 sets, daily range): BP systolic 107–150; BP diastolic 60–79
[2020-04-28] MEDS: IPRATROPIUM/ALBUTEROL 0.5-3(2.5)MG/3ML NEB HHN SCH ×4 (04:50→21:39)
[2020-04-28] MEDS: ALPRAZOLAM 0.25 MG TABLET PO SCH ×3 (05:38→21:25)
[2020-04-28] MEDS: INSULIN LISPRO 100 UNITS/ML SUBCUT SCH ×4 (08:00→21:35)
[2020-04-28] MEDS: BLOOD SUGAR DIAGNOSTIC STRIP TEST SCH ×4 (08:18→21:00)
[2020-04-28] MEDS: METHYLPREDNISOLONE SOD SUCC 40 MG/ML VIAL IV SCH ×2 (08:27→21:24)
[2020-04-28] MEDS: ENOXAPARIN 40MG/0.4ML SYR SUBCUT SCH (08:29)
[2020-04-28] MEDS: HYDROCORTISONE 1% CREAM 30GM PR SCH ×2 (08:29→21:25)
[2020-04-28] MEDS: POLYETHYLENE GLYCOL 3350 (17GM) 1 DOSE PACK PO SCH (08:29)
[2020-04-28] MEDS: SIMETHICONE 80MG TABLET CHEW PO SCH ×3 (08:29→17:05)
[2020-04-28] MEDS: HEMORRHOIDAL SUPP PR SCH ×2 (08:29→21:25)
[2020-04-28] MEDS: DOCUSATE SODIUM 100MG CAPSULE PO SCH ×2 (08:30→17:00)
[2020-04-28] MEDS: ACETYLCYSTEINE 100MG/ML 10% VIAL 4ML INH SCH ×2 (09:40→15:32)
[2020-04-28] MEDS: INSULIN GLARGINE UD 100 UNITS/ML SYR SUBCUT SCH ×2 (10:38→21:36)
[2020-04-28 13:01] LABS: HEMATOCRIT. 29.6 % (36.0-48.0); HEMOGLOBIN. 9.8 g/dL (12.0-16.0); MEAN CORPUSCULAR HEMOGLOBIN 29.9 pg (28.0-32.0); MEAN CORPUSCULAR VOLUME 90.4 fL (81.0-99.0); MEAN PLATELET VOLUME 8.3 fl (7.4-10.4); PLATELET 181 x1000/uL (130-400); RED BLOOD CELL COUNT 3.27 mill/uL (4.2-5.4); RED CELL DISTRIBUTION WIDTH 16.5 % (11.6-14.6)
[2020-04-28 13:07] LABS: CHLORIDE 98 mEq/L (98-107)
[2020-04-28 17:45] LABS: PLATELET ESTIMATE NORMAL
[2020-04-29] VITALS (10 sets, daily range): BP systolic 107–133; BP diastolic 56–73
[2020-04-29] MEDS: IPRATROPIUM/ALBUTEROL 0.5-3(2.5)MG/3ML NEB HHN SCH ×3 (02:56→13:36)
[2020-04-29] MEDS: ALPRAZOLAM 0.25 MG TABLET PO SCH ×2 (05:33→09:40)
[2020-04-29] MEDS: INSULIN LISPRO 100 UNITS/ML SUBCUT SCH ×4 (08:00→21:00)
[2020-04-29] MEDS: DOCUSATE SODIUM 100MG CAPSULE PO SCH ×2 (09:00→17:00)
[2020-04-29] MEDS: SIMETHICONE 80MG TABLET CHEW PO SCH ×3 (09:40→17:21)
[2020-04-29] MEDS: METHYLPREDNISOLONE SOD SUCC 40 MG/ML VIAL IV SCH ×2 (09:40→22:48)
[2020-04-29] MEDS: ENOXAPARIN 40MG/0.4ML SYR SUBCUT SCH (09:41)
[2020-04-29] MEDS: INSULIN GLARGINE UD 100 UNITS/ML SYR SUBCUT SCH ×2 (10:00→22:59)
[2020-04-29] MEDS: POLYETHYLENE GLYCOL 3350 (17GM) 1 DOSE PACK PO SCH (10:03)
[2020-04-29] MEDS ORDERED: LORAZEPAM 2MG/ML CPJ IV PRN (12:00)
[2020-04-29] MEDS: HEMORRHOIDAL SUPP PR SCH ×2 (12:23→22:48)
[2020-04-29] MEDS: HYDROCORTISONE 1% CREAM 30GM PR SCH ×2 (12:47→22:49)
[2020-04-29] MEDS: BLOOD SUGAR DIAGNOSTIC STRIP TEST SCH ×3 (12:48→21:00)
[2020-04-29] MEDS: NYSTATIN 100,000 UNITS/ML 5ML UDC SSW SCH ×2 (17:21→23:10)
[2020-04-29] MEDS: ALPRAZOLAM 0.25 MG TABLET PO PRN (19:46)
[2020-04-30] VITALS (12 sets, daily range): BP systolic 101–136; BP diastolic 59–80
[2020-04-30] MEDS: IPRATROPIUM/ALBUTEROL 0.5-3(2.5)MG/3ML NEB HHN SCH ×4 (02:30→21:26)
[2020-04-30] MEDS: BLOOD SUGAR DIAGNOSTIC STRIP TEST SCH ×4 (07:30→20:31)
[2020-04-30] MEDS: NYSTATIN 100,000 UNITS/ML 5ML UDC SSW SCH ×4 (07:33→23:48)
[2020-04-30] MEDS: INSULIN LISPRO 100 UNITS/ML SUBCUT SCH ×4 (08:00→20:50)
[2020-04-30] MEDS: ENOXAPARIN 40MG/0.4ML SYR SUBCUT SCH (08:55)
[2020-04-30] MEDS: POLYETHYLENE GLYCOL 3350 (17GM) 1 DOSE PACK PO SCH (08:55)
[2020-04-30] MEDS: METHYLPREDNISOLONE SOD SUCC 40 MG/ML VIAL IV SCH (08:56)
[2020-04-30] MEDS: DOCUSATE SODIUM 100MG CAPSULE PO SCH ×3 (08:56→17:00)
[2020-04-30] MEDS: SIMETHICONE 80MG TABLET CHEW PO SCH ×3 (08:56→17:51)
[2020-04-30] MEDS: HEMORRHOIDAL SUPP PR SCH ×2 (08:57→20:28)
[2020-04-30] MEDS: SULFAMETHOXAZOLE/TRIMETHOPRIM 800/160MG TABLET PO SCH (08:57)
[2020-04-30] MEDS: HYDROCORTISONE 1% CREAM 30GM PR SCH ×2 (08:57→20:28)
[2020-04-30] MEDS: ALPRAZOLAM 0.25 MG TABLET PO PRN ×2 (09:13→18:01)
[2020-04-30] MEDS: INSULIN GLARGINE UD 100 UNITS/ML SYR SUBCUT SCH ×2 (10:32→23:46)
[2020-04-30] MEDS: GUAIFENESIN-DM 200MG-20MG/10ML UDC PO PRN (20:57)
[2020-05-01] VITALS (12 sets, daily range): BP systolic 99–128; BP diastolic 50–78
[2020-05-01] MEDS: GUAIFENESIN-DM 200MG-20MG/10ML UDC PO PRN ×3 (01:04→18:07)
[2020-05-01] MEDS: ALPRAZOLAM 0.25 MG TABLET PO PRN ×3 (01:07→21:29)
[2020-05-01] MEDS: IPRATROPIUM/ALBUTEROL 0.5-3(2.5)MG/3ML NEB HHN SCH ×4 (01:47→22:15)
[2020-05-01] MEDS: NYSTATIN 100,000 UNITS/ML 5ML UDC SSW SCH ×4 (05:11→23:21)
[2020-05-01 06:47] LABS: HEMATOCRIT. 28.9 % (36.0-48.0); HEMOGLOBIN. 9.7 g/dL (12.0-16.0); MEAN CORPUSCULAR HEMOGLOBIN 30.3 pg (28.0-32.0); MEAN CORPUSCULAR VOLUME 90.5 fL (81.0-99.0); PLATELET 165 x1000/uL (130-400); RED CELL DISTRIBUTION WIDTH 16.8 % (11.6-14.6)
[2020-05-01 07:17] LABS: CHLORIDE 101 mEq/L (98-107)
[2020-05-01] MEDS: BLOOD SUGAR DIAGNOSTIC STRIP TEST SCH ×4 (07:30→20:18)
[2020-05-01] MEDS: INSULIN LISPRO 100 UNITS/ML SUBCUT SCH ×4 (08:00→20:18)
[2020-05-01] MEDS: SULFAMETHOXAZOLE/TRIMETHOPRIM 800/160MG TABLET PO SCH (08:26)
[2020-05-01] MEDS: ENOXAPARIN 40MG/0.4ML SYR SUBCUT SCH (08:26)
[2020-05-01] MEDS: DOCUSATE SODIUM 100MG CAPSULE PO SCH ×2 (08:26→17:00)
[2020-05-01] MEDS: PREDNISONE 20MG TABLET PO SCH (08:26)
[2020-05-01] MEDS: SIMETHICONE 80MG TABLET CHEW PO SCH ×3 (08:27→17:26)
[2020-05-01] MEDS: HEMORRHOIDAL SUPP PR SCH ×2 (08:27→20:17)
[2020-05-01] MEDS: HYDROCORTISONE 1% CREAM 30GM PR SCH ×2 (08:27→20:18)
[2020-05-01] MEDS: POLYETHYLENE GLYCOL 3350 (17GM) 1 DOSE PACK PO SCH (08:33)
[2020-05-01] MEDS: INSULIN GLARGINE UD 100 UNITS/ML SYR SUBCUT SCH ×2 (09:47→21:54)
[2020-05-01 21:57] LABS: PLATELET ESTIMATE NORMAL
[2020-05-02] VITALS (12 sets, daily range): BP systolic 102–121; BP diastolic 45–72
[2020-05-02] MEDS: IPRATROPIUM/ALBUTEROL 0.5-3(2.5)MG/3ML NEB HHN SCH ×4 (02:15→21:40)
[2020-05-02] MEDS: NYSTATIN 100,000 UNITS/ML 5ML UDC SSW SCH ×4 (05:30→23:36)
[2020-05-02 07:09] LABS: HEMATOCRIT. 30.5 % (36.0-48.0); HEMOGLOBIN. 10.2 g/dL (12.0-16.0); MEAN CORPUSCULAR HEMOGLOBIN 30.3 pg (28.0-32.0); MEAN PLATELET VOLUME 7.9 fl (7.4-10.4); PLATELET 174 x1000/uL (130-400); RED BLOOD CELL COUNT 3.35 mill/uL (4.2-5.4); RED CELL DISTRIBUTION WIDTH 17.1 % (11.6-14.6)
[2020-05-02] MEDS: INSULIN LISPRO 100 UNITS/ML SUBCUT SCH ×4 (08:00→20:39)
[2020-05-02] MEDS: BLOOD SUGAR DIAGNOSTIC STRIP TEST SCH ×4 (08:20→20:37)
[2020-05-02] MEDS: SIMETHICONE 80MG TABLET CHEW PO SCH ×3 (08:23→17:39)
[2020-05-02] MEDS: PREDNISONE 20MG TABLET PO SCH (08:23)
[2020-05-02] MEDS: POLYETHYLENE GLYCOL 3350 (17GM) 1 DOSE PACK PO SCH (08:24)
[2020-05-02] MEDS: HYDROCORTISONE 1% CREAM 30GM PR SCH ×2 (08:24→20:37)
[2020-05-02] MEDS: SULFAMETHOXAZOLE/TRIMETHOPRIM 800/160MG TABLET PO SCH (08:24)
[2020-05-02] MEDS: ENOXAPARIN 40MG/0.4ML SYR SUBCUT SCH (08:26)
[2020-05-02] MEDS: ALPRAZOLAM 0.25 MG TABLET PO PRN ×2 (08:35→17:46)
[2020-05-02] MEDS: HEMORRHOIDAL SUPP PR SCH ×2 (09:00→20:37)
[2020-05-02] MEDS: DOCUSATE SODIUM 100MG CAPSULE PO SCH ×2 (09:00→17:00)
[2020-05-02] MEDS: GUAIFENESIN-DM 200MG-20MG/10ML UDC PO PRN (10:33)
[2020-05-02] MEDS: INSULIN GLARGINE UD 100 UNITS/ML SYR SUBCUT SCH ×2 (10:34→22:48)
[2020-05-02 13:25] LABS: PLATELET ESTIMATE NORMAL
[2020-05-03] VITALS (13 sets, daily range): BP systolic 95–125; BP diastolic 53–73
[2020-05-03] MEDS: NYSTATIN 100,000 UNITS/ML 5ML UDC SSW SCH ×3 (05:00→17:37)
[2020-05-03 07:25] LABS: HEMOGLOBIN. 9.8 g/dL (12.0-16.0); MEAN CORPUSCULAR HEMOGLOBIN 29.7 pg (28.0-32.0); MEAN CORPUSCULAR VOLUME 90.6 fL (81.0-99.0); MEAN PLATELET VOLUME 8.1 fl (7.4-10.4); PLATELET 166 x1000/uL (130-400); RED BLOOD CELL COUNT 3.31 mill/uL (4.2-5.4); RED CELL DISTRIBUTION WIDTH 17.5 % (11.6-14.6)
[2020-05-03 07:39] LABS: CHLORIDE 104 mEq/L (98-107)
[2020-05-03] MEDS: INSULIN LISPRO 100 UNITS/ML SUBCUT SCH ×4 (08:00→20:52)
[2020-05-03] MEDS: BLOOD SUGAR DIAGNOSTIC STRIP TEST SCH ×4 (08:09→20:54)
[2020-05-03] MEDS: POLYETHYLENE GLYCOL 3350 (17GM) 1 DOSE PACK PO SCH (08:11)
[2020-05-03] MEDS: ALPRAZOLAM 0.25 MG TABLET PO PRN ×2 (08:12→17:38)
[2020-05-03] MEDS: PREDNISONE 20MG TABLET PO SCH (08:12)
[2020-05-03] MEDS: SULFAMETHOXAZOLE/TRIMETHOPRIM 800/160MG TABLET PO SCH (08:12)
[2020-05-03] MEDS: SIMETHICONE 80MG TABLET CHEW PO SCH ×3 (08:12→17:37)
[2020-05-03] MEDS: DOCUSATE SODIUM 100MG CAPSULE PO SCH ×2 (08:13→17:00)
[2020-05-03] MEDS: HEMORRHOIDAL SUPP PR SCH ×2 (08:13→20:54)
[2020-05-03] MEDS: HYDROCORTISONE 1% CREAM 30GM PR SCH ×2 (08:14→20:55)
[2020-05-03] MEDS: ENOXAPARIN 40MG/0.4ML SYR SUBCUT SCH (08:19)
[2020-05-03] MEDS: IPRATROPIUM/ALBUTEROL 0.5-3(2.5)MG/3ML NEB HHN SCH ×3 (09:45→21:26)
[2020-05-03] MEDS: GUAIFENESIN-DM 200MG-20MG/10ML UDC PO PRN (11:21)
[2020-05-03] MEDS: INSULIN GLARGINE UD 100 UNITS/ML SYR SUBCUT SCH ×2 (11:21→20:53)
[2020-05-03 11:39] LABS: PLATELET ESTIMATE NORMAL
[2020-05-04] VITALS (12 sets, daily range): BP systolic 100–136; BP diastolic 40–78
[2020-05-04] MEDS: NYSTATIN 100,000 UNITS/ML 5ML UDC SSW SCH ×4 (00:08→17:48)
[2020-05-04] MEDS: IPRATROPIUM/ALBUTEROL 0.5-3(2.5)MG/3ML NEB HHN SCH ×4 (00:44→22:15)
[2020-05-04] MEDS: ALPRAZOLAM 0.25 MG TABLET PO PRN ×3 (01:16→17:49)
[2020-05-04 07:05] LABS: HEMOGLOBIN. 9.9 g/dL (12.0-16.0); MEAN CORPUSCULAR HEMOGLOBIN 30.1 pg (28.0-32.0); MEAN CORPUSCULAR VOLUME 91.1 fL (81.0-99.0); MEAN PLATELET VOLUME 8.2 fl (7.4-10.4); PLATELET 168 x1000/uL (130-400); RED BLOOD CELL COUNT 3.29 mill/uL (4.2-5.4); RED CELL DISTRIBUTION WIDTH 17.6 % (11.6-14.6)
[2020-05-04] MEDS: INSULIN LISPRO 100 UNITS/ML SUBCUT SCH ×4 (07:44→21:08)
[2020-05-04] MEDS: BLOOD SUGAR DIAGNOSTIC STRIP TEST SCH ×4 (07:44→20:59)
[2020-05-04] MEDS: ENOXAPARIN 40MG/0.4ML SYR SUBCUT SCH (08:22)
[2020-05-04] MEDS: DOCUSATE SODIUM 100MG CAPSULE PO SCH ×2 (08:22→17:00)
[2020-05-04] MEDS: POLYETHYLENE GLYCOL 3350 (17GM) 1 DOSE PACK PO SCH (08:22)
[2020-05-04] MEDS: SIMETHICONE 80MG TABLET CHEW PO SCH ×3 (08:22→17:48)
[2020-05-04] MEDS: PREDNISONE 20MG TABLET PO SCH (08:22)
[2020-05-04] MEDS: SULFAMETHOXAZOLE/TRIMETHOPRIM 800/160MG TABLET PO SCH (08:22)
[2020-05-04] MEDS: HYDROCORTISONE 1% CREAM 30GM PR SCH ×2 (08:23→20:59)
[2020-05-04] MEDS: HEMORRHOIDAL SUPP PR SCH ×2 (08:23→20:59)
[2020-05-04] MEDS: INSULIN GLARGINE UD 100 UNITS/ML SYR SUBCUT SCH ×2 (10:32→21:09)
[2020-05-04 17:57] LABS: PLATELET ESTIMATE NORMAL
[2020-05-05] VITALS (12 sets, daily range): BP systolic 98–133; BP diastolic 50–97
[2020-05-05] MEDS: NYSTATIN 100,000 UNITS/ML 5ML UDC SSW SCH ×5 (00:18→23:37)
[2020-05-05] MEDS: ALPRAZOLAM 0.25 MG TABLET PO PRN ×2 (00:21→23:37)
[2020-05-05] MEDS: IPRATROPIUM/ALBUTEROL 0.5-3(2.5)MG/3ML NEB HHN SCH ×4 (04:35→21:13)
[2020-05-05 06:30] LABS: CHLORIDE 104 mEq/L (98-107)
[2020-05-05] MEDS: INSULIN LISPRO 100 UNITS/ML SUBCUT SCH ×5 (08:00→20:53)
[2020-05-05] MEDS: BLOOD SUGAR DIAGNOSTIC STRIP TEST SCH ×4 (08:14→20:22)
[2020-05-05] MEDS: SIMETHICONE 80MG TABLET CHEW PO SCH ×3 (08:15→17:19)
[2020-05-05] MEDS: SULFAMETHOXAZOLE/TRIMETHOPRIM 800/160MG TABLET PO SCH (08:15)
[2020-05-05] MEDS: PREDNISONE 20MG TABLET PO SCH (08:15)
[2020-05-05] MEDS: POLYETHYLENE GLYCOL 3350 (17GM) 1 DOSE PACK PO SCH (08:17)
[2020-05-05] MEDS: HEMORRHOIDAL SUPP PR SCH ×2 (08:17→20:22)
[2020-05-05] MEDS: HYDROCORTISONE 1% CREAM 30GM PR SCH ×2 (08:18→20:22)
[2020-05-05] MEDS: ENOXAPARIN 40MG/0.4ML SYR SUBCUT SCH (08:18)
[2020-05-05] MEDS: DOCUSATE SODIUM 100MG CAPSULE PO SCH ×2 (08:18→17:00)
[2020-05-05] MEDS: INSULIN GLARGINE UD 100 UNITS/ML SYR SUBCUT SCH ×2 (10:32→21:57)
[2020-05-06] VITALS (12 sets, daily range): BP systolic 100–132; BP diastolic 55–86
[2020-05-06] MEDS: IPRATROPIUM/ALBUTEROL 0.5-3(2.5)MG/3ML NEB HHN SCH ×4 (02:46→20:50)
[2020-05-06] MEDS: NYSTATIN 100,000 UNITS/ML 5ML UDC SSW SCH ×4 (05:12→23:51)
[2020-05-06] MEDS: INSULIN LISPRO 100 UNITS/ML SUBCUT SCH ×4 (08:00→21:04)
[2020-05-06] MEDS: SULFAMETHOXAZOLE/TRIMETHOPRIM 800/160MG TABLET PO SCH (08:14)
[2020-05-06] MEDS: SIMETHICONE 80MG TABLET CHEW PO SCH ×3 (08:14→17:16)
[2020-05-06] MEDS: PREDNISONE 20MG TABLET PO SCH (08:14)
[2020-05-06] MEDS: ENOXAPARIN 40MG/0.4ML SYR SUBCUT SCH (08:15)
[2020-05-06] MEDS: BLOOD SUGAR DIAGNOSTIC STRIP TEST SCH ×4 (08:15→21:02)
[2020-05-06] MEDS: DOCUSATE SODIUM 100MG CAPSULE PO SCH ×2 (08:16→16:57)
[2020-05-06] MEDS: POLYETHYLENE GLYCOL 3350 (17GM) 1 DOSE PACK PO SCH (08:16)
[2020-05-06] MEDS: HEMORRHOIDAL SUPP PR SCH ×2 (08:18→21:02)
[2020-05-06] MEDS: HYDROCORTISONE 1% CREAM 30GM PR SCH ×2 (08:18→21:02)
[2020-05-06] MEDS: ALPRAZOLAM 0.25 MG TABLET PO PRN ×2 (10:22→23:51)
[2020-05-06] MEDS: INSULIN GLARGINE UD 100 UNITS/ML SYR SUBCUT SCH ×2 (10:31→21:04)
[2020-05-07] VITALS (10 sets, daily range): BP systolic 103–143; BP diastolic 63–86
[2020-05-07] MEDS: NYSTATIN 100,000 UNITS/ML 5ML UDC SSW SCH ×4 (05:12→23:41)
[2020-05-07] MEDS: IPRATROPIUM/ALBUTEROL 0.5-3(2.5)MG/3ML NEB HHN SCH ×4 (06:14→21:20)
[2020-05-07 06:39] LABS: HEMATOCRIT. 30.6 % (36.0-48.0); HEMOGLOBIN. 10.2 g/dL (12.0-16.0); MEAN CORPUSCULAR HEMOGLOBIN 30.2 pg (28.0-32.0); MEAN CORPUSCULAR VOLUME 90.6 fL (81.0-99.0); MEAN PLATELET VOLUME 8.4 fl (7.4-10.4); PLATELET 195 x1000/uL (130-400); RED BLOOD CELL COUNT 3.37 mill/uL (4.2-5.4); RED CELL DISTRIBUTION WIDTH 17.4 % (11.6-14.6)
[2020-05-07 06:52] LABS: CHLORIDE 104 mEq/L (98-107)
[2020-05-07] MEDS: BLOOD SUGAR DIAGNOSTIC STRIP TEST SCH ×4 (07:30→21:36)
[2020-05-07] MEDS: INSULIN LISPRO 100 UNITS/ML SUBCUT SCH ×4 (08:00→21:42)
[2020-05-07] MEDS: HEMORRHOIDAL SUPP PR SCH ×2 (09:00→21:00)
[2020-05-07] MEDS ORDERED: LORAZEPAM 2MG/ML CPJ IV SCH (09:30)
[2020-05-07] MEDS: POLYETHYLENE GLYCOL 3350 (17GM) 1 DOSE PACK PO SCH (09:30)
[2020-05-07] MEDS: ENOXAPARIN 40MG/0.4ML SYR SUBCUT SCH (09:31)
[2020-05-07] MEDS: SULFAMETHOXAZOLE/TRIMETHOPRIM 800/160MG TABLET PO SCH (09:32)
[2020-05-07] MEDS: SIMETHICONE 80MG TABLET CHEW PO SCH ×3 (09:32→17:42)
[2020-05-07] MEDS: PREDNISONE 20MG TABLET PO SCH (09:32)
[2020-05-07] MEDS: DOCUSATE SODIUM 100MG CAPSULE PO SCH ×2 (09:32→17:00)
[2020-05-07] MEDS: INSULIN GLARGINE UD 100 UNITS/ML SYR SUBCUT SCH ×2 (10:00→21:42)
[2020-05-07 15:42] LABS: PLATELET ESTIMATE NORMAL
[2020-05-07] MEDS: HYDROCORTISONE 1% CREAM 30GM PR SCH ×2 (18:35→21:36)
[2020-05-07] MEDS: ALPRAZOLAM 0.25 MG TABLET PO PRN (21:37)
[2020-05-08] VITALS (12 sets, daily range): BP systolic 97–129; BP diastolic 55–89
[2020-05-08] MEDS: IPRATROPIUM/ALBUTEROL 0.5-3(2.5)MG/3ML NEB HHN SCH ×4 (02:51→20:20)
[2020-05-08] MEDS: NYSTATIN 100,000 UNITS/ML 5ML UDC SSW SCH ×4 (05:03→23:04)
[2020-05-08] MEDS: BLOOD SUGAR DIAGNOSTIC STRIP TEST SCH ×4 (07:30→21:49)
[2020-05-08] MEDS: DOCUSATE SODIUM 100MG CAPSULE PO SCH (09:00)
[2020-05-08] MEDS: POLYETHYLENE GLYCOL 3350 (17GM) 1 DOSE PACK PO SCH (09:50)
[2020-05-08] MEDS: INSULIN LISPRO 100 UNITS/ML SUBCUT SCH ×4 (09:51→21:51)
[2020-05-08] MEDS: SULFAMETHOXAZOLE/TRIMETHOPRIM 800/160MG TABLET PO SCH (09:51)
[2020-05-08] MEDS: PREDNISONE 20MG TABLET PO SCH (09:52)
[2020-05-08] MEDS: HYDROCORTISONE 1% CREAM 30GM PR SCH ×2 (09:52→21:49)
[2020-05-08] MEDS: SIMETHICONE 80MG TABLET CHEW PO SCH ×3 (09:52→17:17)
[2020-05-08] MEDS: HEMORRHOIDAL SUPP PR SCH ×2 (09:52→21:00)
[2020-05-08] MEDS: ALPRAZOLAM 0.25 MG TABLET PO PRN ×2 (10:26→18:39)
[2020-05-08] MEDS: ENOXAPARIN 40MG/0.4ML SYR SUBCUT SCH (10:28)
[2020-05-08] MEDS: INSULIN GLARGINE UD 100 UNITS/ML SYR SUBCUT SCH ×2 (13:28→21:52)
[2020-05-09] VITALS (12 sets, daily range): BP systolic 100–128; BP diastolic 51–85
[2020-05-09] MEDS: IPRATROPIUM/ALBUTEROL 0.5-3(2.5)MG/3ML NEB HHN SCH ×3 (02:18→21:04)
[2020-05-09] MEDS: ALPRAZOLAM 0.25 MG TABLET PO PRN ×3 (02:58→22:22)
[2020-05-09] MEDS: NYSTATIN 100,000 UNITS/ML 5ML UDC SSW SCH ×3 (05:23→17:24)
[2020-05-09 06:17] LABS: CHLORIDE 101 mEq/L (98-107)
[2020-05-09] MEDS: INSULIN LISPRO 100 UNITS/ML SUBCUT SCH ×4 (08:00→21:00)
[2020-05-09] MEDS: ENOXAPARIN 40MG/0.4ML SYR SUBCUT SCH (08:13)
[2020-05-09] MEDS: BLOOD SUGAR DIAGNOSTIC STRIP TEST SCH ×4 (08:15→20:44)
[2020-05-09] MEDS: SIMETHICONE 80MG TABLET CHEW PO SCH ×3 (08:17→17:24)
[2020-05-09] MEDS: SULFAMETHOXAZOLE/TRIMETHOPRIM 800/160MG TABLET PO SCH (08:36)
[2020-05-09] MEDS: PREDNISONE 20MG TABLET PO SCH (08:36)
[2020-05-09] MEDS: POLYETHYLENE GLYCOL 3350 (17GM) 1 DOSE PACK PO SCH (08:37)
[2020-05-09] MEDS: HYDROCORTISONE 1% CREAM 30GM PR SCH ×2 (09:00→20:39)
[2020-05-09] MEDS: HEMORRHOIDAL SUPP PR SCH ×2 (09:00→20:39)
[2020-05-09] MEDS: INSULIN GLARGINE UD 100 UNITS/ML SYR SUBCUT SCH ×2 (11:18→22:09)
[2020-05-10] VITALS (11 sets, daily range): BP systolic 92–159; BP diastolic 49–86
[2020-05-10] MEDS: NYSTATIN 100,000 UNITS/ML 5ML UDC SSW SCH ×4 (00:22→17:19)
[2020-05-10] MEDS: GUAIFENESIN-DM 200MG-20MG/10ML UDC PO PRN ×3 (00:28→13:43)
[2020-05-10] MEDS: IPRATROPIUM/ALBUTEROL 0.5-3(2.5)MG/3ML NEB HHN SCH ×4 (01:59→20:35)
[2020-05-10] MEDS: BLOOD SUGAR DIAGNOSTIC STRIP TEST SCH ×4 (07:30→20:44)
[2020-05-10] MEDS: INSULIN LISPRO 100 UNITS/ML SUBCUT SCH ×4 (08:00→20:49)
[2020-05-10] MEDS: HYDROCORTISONE 1% CREAM 30GM PR SCH ×2 (08:38→20:54)
[2020-05-10] MEDS: SULFAMETHOXAZOLE/TRIMETHOPRIM 800/160MG TABLET PO SCH (08:38)
[2020-05-10] MEDS: PREDNISONE 20MG TABLET PO SCH (08:39)
[2020-05-10] MEDS: ENOXAPARIN 40MG/0.4ML SYR SUBCUT SCH (08:40)
[2020-05-10] MEDS: POLYETHYLENE GLYCOL 3350 (17GM) 1 DOSE PACK PO SCH (08:41)
[2020-05-10] MEDS: SIMETHICONE 80MG TABLET CHEW PO SCH ×3 (08:41→17:19)
[2020-05-10] MEDS: HEMORRHOIDAL SUPP PR SCH ×2 (08:44→20:37)
[2020-05-10] MEDS: INSULIN GLARGINE UD 100 UNITS/ML SYR SUBCUT SCH ×2 (09:56→23:01)
[2020-05-10] MEDS: ALPRAZOLAM 0.25 MG TABLET PO PRN ×2 (10:03→20:36)
[2020-05-10] MEDS: BENZONATATE 100MG CAPSULE PO PRN (20:37)
[2020-05-11] VITALS (8 sets, daily range): BP systolic 101–123; BP diastolic 48–83
[2020-05-11] MEDS: IPRATROPIUM/ALBUTEROL 0.5-3(2.5)MG/3ML NEB HHN SCH ×4 (02:21→20:36)
[2020-05-11] MEDS: NYSTATIN 100,000 UNITS/ML 5ML UDC SSW SCH ×4 (04:01→17:28)
[2020-05-11] MEDS: ALPRAZOLAM 0.25 MG TABLET PO PRN ×3 (04:05→21:37)
[2020-05-11] MEDS: BENZONATATE 100MG CAPSULE PO PRN ×3 (04:12→21:37)
[2020-05-11 07:12] LABS: CHLORIDE 99 mEq/L (98-107)
[2020-05-11] MEDS: BLOOD SUGAR DIAGNOSTIC STRIP TEST SCH ×4 (07:30→21:36)
[2020-05-11] MEDS: INSULIN LISPRO 100 UNITS/ML SUBCUT SCH ×4 (08:00→21:36)
[2020-05-11] MEDS: ENOXAPARIN 40MG/0.4ML SYR SUBCUT SCH (09:22)
[2020-05-11] MEDS: POLYETHYLENE GLYCOL 3350 (17GM) 1 DOSE PACK PO SCH (09:22)
[2020-05-11] MEDS: PREDNISONE 20MG TABLET PO SCH (09:23)
[2020-05-11] MEDS: INSULIN GLARGINE UD 100 UNITS/ML SYR SUBCUT SCH ×2 (09:24→21:37)
[2020-05-11] MEDS: HYDROCORTISONE 1% CREAM 30GM PR SCH ×2 (09:25→21:39)
[2020-05-11] MEDS: HEMORRHOIDAL SUPP PR SCH ×2 (09:26→21:37)
[2020-05-11] MEDS: SIMETHICONE 80MG TABLET CHEW PO PRN ×2 (11:36→17:28)
[2020-05-12] VITALS (10 sets, daily range): BP systolic 92–120; BP diastolic 52–79
[2020-05-12] MEDS: IPRATROPIUM/ALBUTEROL 0.5-3(2.5)MG/3ML NEB HHN SCH ×4 (01:42→20:29)
[2020-05-12] MEDS: ALPRAZOLAM 0.25 MG TABLET PO PRN ×3 (05:26→21:48)
[2020-05-12] MEDS: NYSTATIN 100,000 UNITS/ML 5ML UDC SSW SCH ×4 (05:26→17:54)
[2020-05-12] MEDS: BENZONATATE 100MG CAPSULE PO PRN ×4 (05:27→23:41)
[2020-05-12] MEDS: INSULIN LISPRO 100 UNITS/ML SUBCUT SCH ×4 (08:00→21:05)
[2020-05-12] MEDS: BLOOD SUGAR DIAGNOSTIC STRIP TEST SCH ×4 (08:03→21:04)
[2020-05-12] MEDS: PREDNISONE 20MG TABLET PO SCH (08:04)
[2020-05-12] MEDS: HEMORRHOIDAL SUPP PR SCH ×2 (08:05→21:04)
[2020-05-12] MEDS: HYDROCORTISONE 1% CREAM 30GM PR SCH ×2 (08:05→21:04)
[2020-05-12] MEDS: ENOXAPARIN 40MG/0.4ML SYR SUBCUT SCH (08:05)
[2020-05-12] MEDS: SIMETHICONE 80MG TABLET CHEW PO PRN ×2 (08:45→18:04)
[2020-05-12] MEDS: POLYETHYLENE GLYCOL 3350 (17GM) 1 DOSE PACK PO SCH (09:30)
[2020-05-12] MEDS: INSULIN GLARGINE UD 100 UNITS/ML SYR SUBCUT SCH ×2 (13:13→21:49)
[2020-05-12] MEDS: GUAIFENESIN-DM 200MG-20MG/10ML UDC PO PRN (21:04)
[2020-05-13] VITALS (11 sets, daily range): BP systolic 105–129; BP diastolic 58–86
[2020-05-13] MEDS: IPRATROPIUM/ALBUTEROL 0.5-3(2.5)MG/3ML NEB HHN SCH ×4 (01:34→21:30)
[2020-05-13] MEDS: ALPRAZOLAM 0.25 MG TABLET PO PRN ×3 (07:04→21:57)
[2020-05-13] MEDS: INSULIN LISPRO 100 UNITS/ML SUBCUT SCH ×4 (07:23→21:59)
[2020-05-13] MEDS: BLOOD SUGAR DIAGNOSTIC STRIP TEST SCH ×4 (07:23→21:59)
[2020-05-13] MEDS: POLYETHYLENE GLYCOL 3350 (17GM) 1 DOSE PACK PO SCH (08:15)
[2020-05-13] MEDS: ENOXAPARIN 40MG/0.4ML SYR SUBCUT SCH (08:16)
[2020-05-13] MEDS: BENZONATATE 100MG CAPSULE PO PRN ×3 (08:16→23:09)
[2020-05-13] MEDS: HEMORRHOIDAL SUPP PR SCH (08:16)
[2020-05-13] MEDS: HYDROCORTISONE 1% CREAM 30GM PR SCH ×2 (08:16→21:57)
[2020-05-13] MEDS: PREDNISONE 20MG TABLET PO SCH (08:16)
[2020-05-13] MEDS: SIMETHICONE 80MG TABLET CHEW PO PRN (10:43)
[2020-05-13] MEDS: INSULIN GLARGINE UD 100 UNITS/ML SYR SUBCUT SCH ×2 (10:43→21:59)
[2020-05-13] MEDS: GUAIFENESIN-DM 200MG-20MG/10ML UDC PO PRN ×2 (10:46→17:24)
[2020-05-14] VITALS (12 sets, daily range): BP systolic 103–138; BP diastolic 54–70
[2020-05-14] MEDS: IPRATROPIUM/ALBUTEROL 0.5-3(2.5)MG/3ML NEB HHN SCH ×4 (02:38→20:56)
[2020-05-14] MEDS: GUAIFENESIN-DM 200MG-20MG/10ML UDC PO PRN ×2 (04:09→23:27)
[2020-05-14] MEDS: INSULIN LISPRO 100 UNITS/ML SUBCUT SCH ×4 (07:44→21:32)
[2020-05-14] MEDS: BLOOD SUGAR DIAGNOSTIC STRIP TEST SCH ×4 (07:44→21:00)
[2020-05-14] MEDS: POLYETHYLENE GLYCOL 3350 (17GM) 1 DOSE PACK PO SCH (08:11)
[2020-05-14] MEDS: ALPRAZOLAM 0.25 MG TABLET PO PRN ×2 (08:11→16:26)
[2020-05-14] MEDS: BENZONATATE 100MG CAPSULE PO PRN ×2 (08:11→16:26)
[2020-05-14] MEDS: PREDNISONE 20MG TABLET PO SCH (08:11)
[2020-05-14] MEDS: ENOXAPARIN 40MG/0.4ML SYR SUBCUT SCH (08:13)
[2020-05-14] MEDS: HYDROCORTISONE 1% CREAM 30GM PR SCH (08:14)
[2020-05-14] MEDS: INSULIN GLARGINE UD 100 UNITS/ML SYR SUBCUT SCH ×2 (11:26→21:23)
[2020-05-14] MEDS: SIMETHICONE 80MG TABLET CHEW PO PRN (12:46)
[2020-05-15] VITALS (12 sets, daily range): BP systolic 95–132; BP diastolic 53–76
[2020-05-15] MEDS: BENZONATATE 100MG CAPSULE PO PRN ×2 (02:43→18:06)
[2020-05-15] MEDS: IPRATROPIUM/ALBUTEROL 0.5-3(2.5)MG/3ML NEB HHN SCH ×4 (03:24→21:23)
[2020-05-15] MEDS: ALPRAZOLAM 0.25 MG TABLET PO PRN ×3 (03:47→21:46)
[2020-05-15] MEDS: BLOOD SUGAR DIAGNOSTIC STRIP TEST SCH ×4 (07:30→20:07)
[2020-05-15] MEDS: INSULIN LISPRO 100 UNITS/ML SUBCUT SCH ×4 (08:00→20:22)
[2020-05-15] MEDS: ENOXAPARIN 40MG/0.4ML SYR SUBCUT SCH (09:46)
[2020-05-15] MEDS: INSULIN GLARGINE UD 100 UNITS/ML SYR SUBCUT SCH ×2 (09:47→21:41)
[2020-05-15] MEDS: GUAIFENESIN-DM 200MG-20MG/10ML UDC PO PRN ×3 (09:47→23:50)
[2020-05-15] MEDS: POLYETHYLENE GLYCOL 3350 (17GM) 1 DOSE PACK PO SCH (09:47)
[2020-05-15] MEDS: SIMETHICONE 80MG TABLET CHEW PO PRN ×2 (10:00→17:20)
[2020-05-15] MEDS ORDERED: ACETAMINOPHEN 325MG TABLET PO PRN (13:45)
[2020-05-15] MEDS: PREDNISONE 20MG TABLET PO SCH ×2 (13:52→17:00)
[2020-05-16] VITALS (9 sets, daily range): BP systolic 97–138; BP diastolic 59–95
[2020-05-16] MEDS: IPRATROPIUM/ALBUTEROL 0.5-3(2.5)MG/3ML NEB HHN SCH ×3 (03:13→12:37)
[2020-05-16] MEDS: BENZONATATE 100MG CAPSULE PO PRN ×2 (06:04→13:00)
[2020-05-16] MEDS: ALPRAZOLAM 0.25 MG TABLET PO PRN ×2 (06:04→13:13)
[2020-05-16] MEDS: BLOOD SUGAR DIAGNOSTIC STRIP TEST SCH ×2 (07:30→12:50)
[2020-05-16] MEDS: INSULIN LISPRO 100 UNITS/ML SUBCUT SCH ×2 (08:00→12:51)
[2020-05-16] MEDS: POLYETHYLENE GLYCOL 3350 (17GM) 1 DOSE PACK PO SCH (08:55)
[2020-05-16] MEDS: PREDNISONE 20MG TABLET PO SCH (08:55)
[2020-05-16] MEDS: SIMETHICONE 80MG TABLET CHEW PO PRN (08:55)
[2020-05-16] MEDS: ENOXAPARIN 40MG/0.4ML SYR SUBCUT SCH (09:02)
[2020-05-16] MEDS: INSULIN GLARGINE UD 100 UNITS/ML SYR SUBCUT SCH (10:26)
== END 2020-05-16 17:00 | disposition short-term general hospital (02) | DRG 871 ==
LOC: ER 04:39 → MICUSO 06:31 → EDBEDREQTM 06:34 → EDBEDREQ 06:34 → EDBEDREQSVC 08:41 → 7WST 23:16 → MICUSO 04-04 19:09 → 5EST 04-13 22:05
PROVIDERS: ADMIT Hospitalist; ATTEND Hospitalist
PROC: 5A09557 Assistance with Respiratory Ventilation, Greater than 96 Consecutive Hours, Continuous Positive Airway Pressure (ICD-10-PCS; principal; 2020-03-25)
DX: A41.89 Other specified sepsis (principal); J96.01 Acute respiratory failure with hypoxia; J12.82 Pneumonia due to coronavirus disease 2019; E43 Unspecified severe protein-calorie malnutrition; E87.1 Hypo-osmolality and hyponatremia; K92.2 Gastrointestinal hemorrhage, unspecified; I10 Essential (primary) hypertension; B97.89 Other viral agents as the cause of diseases classified elsewhere; B37.9 Candidiasis, unspecified; D63.8 Anemia in other chronic diseases classified elsewhere; D69.6 Thrombocytopenia, unspecified; D72.810 Lymphocytopenia; E11.65 Type 2 diabetes mellitus with hyperglycemia; F41.9 Anxiety disorder, unspecified; I25.10 Atherosclerotic heart disease of native coronary artery without angina pectoris; J84.10 Pulmonary fibrosis, unspecified; K59.00 Constipation, unspecified; K64.9 Unspecified hemorrhoids; K76.0 Fatty (change of) liver, not elsewhere classified; Z79.899 Other long term (current) drug therapy; Z85.43 Personal history of malignant neoplasm of ovary; Z90.710 Acquired absence of both cervix and uterus; Z90.49 Acquired absence of other specified parts of digestive tract; R65.20 Severe sepsis without septic shock; Z79.4 Long term (current) use of insulin; Z68.20 Body mass index [BMI] 20.0-20.9, adult
CPT/HCPCS: 36415; 36600; 71045; 71250; 71275; 74018; 74176; 80048; 80053; 80061; 80076; 80202; 81003; 82375; 82550; 82607; 82728; 82805; 82962; 83036; 83520; 83540; 83550; 83605; 83615; 83735; 83880; 84100; 84145; 84439; 84443; 84481; 84484; 85014; 85018; 85025; 85044; 85379; 86038; 86140; 86256; 86430; 87426; 87635; 87804; 92950; 93005; 93306; 93970; 94003; 94640; 94660; 96365; 97110; 97116; 97162; 97164; 97166; 97530; 99285; A6261; J0456; J1650; J1815; J1885; J1940; J2060; J2270; J2405; J2543; J2920; J2930; J3370; J7040; J7042; J7060; J7512; J7608; A4315